=== PATIENT | female | born 1960 | race Caucasian/White ===

== ENCOUNTER 2021-12-01 20:15 | Emergency (ER) | payer MEDICAID ==
[~2021-12-01] VITALS: Ht 152.4 cm; Wt 86.4 kg
[2021-12-01 21:06] VITALS: BP 195/122
--- NOTE | 2021-12-01 21:16 | NUR ---
Pt states that she has not been on her antihypertensive medication for the past year. She was taken off this medication by her primary care provider. EDDA Solorzano made aware of elevated blood pressure.
[2021-12-01] MEDS ORDERED: ONDA4TAB12 PO (21:32)
[2021-12-01] MEDS ORDERED: CEPH250T PO (21:32)
[2021-12-01] MEDS ORDERED: HYDR-3965 PO (21:32)
[2021-12-01] MEDS ORDERED: ketorolac tromethamine 15mg/ml inj. IM ONE (21:45)
== END 2021-12-01 22:31 | disposition home or self-care (01) ==
LOC: ER 20:16
DX: S80.02XA Contusion of left knee, initial encounter (principal); R22.42 Localized swelling, mass and lump, left lower limb; I10 Essential (primary) hypertension; G89.29 Other chronic pain; Z98.891 History of uterine scar from previous surgery; Z88.0 Allergy status to penicillin; Z79.2 Long term (current) use of antibiotics; Z79.899 Other long term (current) drug therapy; W19.XXXA Unspecified fall, initial encounter; Y93.89 Activity, other specified; Y92.89 Other specified places as the place of occurrence of the external cause; Y99.8 Other external cause status
CPT/HCPCS: 29505; 73564; 96372; 99284; J1885

== ENCOUNTER 2025-02-08 12:59 | Inpatient (IN) | payer MEDICAID ==
[~2025-02-08] VITALS: Ht 152.4 cm; Wt 103.4 kg
[~2025-02-08 12:59] MED LIST: ONDA-243 PO
[2025-02-08 13:32] LABS: MEAN PLATELET VOLUME 8.7 FL (7.4-10.4); RED CELL DISTRIBUTION WIDTH 13.8 % (11.5-14.5)
--- NOTE | 2025-02-08 13:44 | ELECTROCARDIOGRAPH REPORT ---
[facility] Test Date: 2025-02-08 Test Time: 13:15:00 Pat Name: JASON NEELY Department: EMERGENCY ROOM Room: [place] [address] Gender: F Cell Tuber Hand: : 1960 Requested By: JOVANNY BAUM Order Number: [id number] Reading MD: Dr. Peter Hagan Measurements Intervals Elmo Rate: 72 P: 47 LA: 168 QRS: 67 QRSD: 108 T: 39 QT: 418 QTc: 458 Interpretive Statements Sinus rhythm RSR' in V1 or V2, right VCD or RVH Electronically Signed On 02-10-2025 19:27:[address] Peter Hagan Please click the below link to view image of tracing.
--- NOTE | 2025-02-08 13:48 | RADIOLOGY REPORT ---
EXAM: DI CHEST,SINGLE VIEW HISTORY: CP COMPARISON: None TECHNIQUE: Portable upright AP view of the chest was performed. FINDINGS: There is central interstitial prominence. There are mild patchy opacities in the bilateral lung base s. No pneumothorax. The heart is enlarged. The central pulmonary arteries are likely ectatic. IMPRESSION: 1. Cardiomegaly and mild central interstitial prominence which may be due to reactive airways disease or mild CHF. 2. Patchy opacities in the lung bases may be due to scarring, atelectasis, and/or mild pneumonia. Co mparison with old films would be helpful in making this distinction. 3. Probable pulmonary arterial hypertension.
[2025-02-08 13:53] LABS: CREATININE 0.72 MG/DL (0.40-0.90); PRO BRAIN NATRIURETIC PEPTIDE 276 PG/ML (0-125); TOTAL CARBON DIOXIDE 36.3 MMOL/L (24-32); eCRCL 57 ML/MIN; eGFR 82 ML/MIN
--- NOTE | 2025-02-08 14:07 | Physician Documentation ---
History of Present Illness ~ Chief Complaint: Weakness Stated Complaint: WEAKNESS Time Seen by MD: 13:51 OK to notify your PCP?: No Primary Medical Doctor: Alberto Mode of Arrival: EMS HPI This 65-year-old female presents to the ED with a complaint of increased weakness and leg swelling along with shortness of breath and intermittent chest pain over the last month. He was recently seen at [facility] (02/06) for similar symptoms. The patient reports that she was diagnosed with a PE however, the CTA records from [facility] indicate the that was not the case The CTA findings indicated no gross evidence of a pulmonary embolism and made note of cardiomegaly suggesting arterial hypertension. Upon arrival of EMS at the patient's resident she was saturating at 91% on room air. She is placed on 3 L to maintain adequate oxygenation. During my interview with the patient she states that she has never been a smoker however she has lived with a smoker for 75% of her life indicating long-term exposure to secondhand smoke. She reports that she has not never been evaluated for COPD Day of Onset: Feb 08, 2025 Medication Reconciliation Allergies: Coded Allergies: Penicillins (Unverified Allergy, Unknown, hives, 02/08/25) Scheduled Escitalopram Oxalate (Lexapro), 1 TAB PO DAILY, (Reported) Hydrochlorothiazide (Hydrochlorothiazide), 1 TAB PO DAILY, (Reported) Levothyroxine Sodium* (Synthroid*), 1 TAB PO DAILY, (Reported) Losartan Potassium* (Cozaar*), 1 TAB PO DAILY, (Reported) ONDANSETRON ODT 4mg tablet (Ondansetron Odt), 1 TABLET PO Q6H Miscellaneous Medications Sumatriptan Succinate (Imitrex), 4 MG SQ, (Reported) Past Medical History Past Medical History: Hypertension, Thyroid (unspecified), Chronic Back Pain Past Surgical History: Alcohol Use: None Drug Use: none Lives with: Spouse Lives In: Home Review of Systems All Other Systems at this time: Reviewed and Negative ROS As stated above in the HPI, otherwise all systems are reviewed and negative. Physical Exam Vital Signs: Temperature: 97.8, Source: Temporal, Heart Rate: 71, Respiratory Rate: 18, BP: 178/84, Pulse Oximetry: 97, Weight: 154.000 Oxygen Flow Rate: 0 Physical Exam General: Alert, no apparent distress. Respiratory: diminished B/L Chest: No accessory muscle use. Cardiovascular: Regular rate and rhythm, no murmurs. Gastrointestinal: Soft, nontender, nondistended. Bowels sounds present. Extremities: Bilateral lower extremity generalized edema with flake vargas skin and erythema circumferentially on both legs. no evidence of drainage or seeping. Neurologic: Oriented x4. Psychiatric: Normal mood and affect. Skin: Normal color, warm and dry. No edema, no ecchymosis. Progress Results/Orders Results/Orders Orders - SARTHAK LYNNE SCHOOL CLERK Page Hospitalist (02/08/25 14:05) Fill Out Med Reconciliation (02/08/25 14:05) Completed Orders - SARTHAK LYNNE SCHOOL CLERK Furosemide Inj (Lasix Inj) (02/08/25 14:10) Potassium Cl Inj (Potassium Cl Inj) (02/08/25 14:10) Potassium Cl 40meq/1/2ns 520ml ([place] (02/08/25 14:14) Vital Signs 02/08/25 02/08/25 02/08/25 13:04 13:19 14:00 Temp 97.8 Pulse 71 74 Resp 18 16 16 B/P (MAP) 178/84 164/87 (112) Pulse Ox 97 99 O2 Flow Rate 0 2.0 Laboratory Tests Test 02/08/25 13:21 White Blood Count 7.4 Red Blood Count 3.90 L Hemoglobin 12.9 Hematocrit 38.5 Mean Corpuscular Volume 98.7 H Mean Corpuscular Hemoglobin 33.0 H Mean Corpuscular Hemoglobin Concent 33.4 Red Cell Distribution Width 13.8 Platelet Count 255 Mean Platelet Volume 8.7 Neutrophils (%) (Auto) 69.4 Lymphocytes (%) (Auto) 22.1 Monocytes (%) (Auto) 6.3 Eosinophils (%) (Auto) 1.6 Basophils (%) (Auto) 0.6 Neutrophils # (Auto) 5.1 Lymphocytes # (Auto) 1.6 Monocytes # (Auto) 0.5 Eosinophils # (Auto) 0.1 Basophils # (Auto) 0.0 CBC Comment Sodium Level 139 Potassium Level 3.1 L Chloride Level 100 Carbon Dioxide Level 36.3 H Anion Gap 3 L Blood Urea Nitrogen 16 Creatinine 0.72 Estimated GFR/1.73 m2 82 BUN/Creatinine Ratio 22.2 H Glucose Level 100 Calcium Level 8.8 Troponin I High Sensitivity 10 Pro-B-Type Natriuretic Peptide 276 H Albumin 3.4 Chemistry Comments Medical Decision Making Differential Dx:Considerations: Include: anemia, CVA, dehydration, dysrhythmia, electrolyte imbalance, encephalopathy, Guillain-Huntington, hypoglycemia, hypotension, hypovolemia, labyrinthitis, Meniere's disease, myasathenia gravis, myocardial infarction, pulmonary embolus, renal failure, respiratory failure, TIA, VBI, vertigo central, vertigo peripheral, vestibular neuronitis, other Departure Disposition: 09 ADMITTED INPATIENT Impression: Primary Impression: Pneumonitis Additional Impressions: Leg swelling Weakness SOB (shortness of breath) Chest pain at rest Hypokalemia Referrals: NO PRIMARY CARE PROVIDER (PCP) Signature Scribe Signature: er Attestation: Scribed for Sarthak Lynne Quality Tech by Sarthak Buitrago NP . 02/08/25 14:32 SARTHAK LYNNE SCHOOL CLERK Feb 08, 2025 14:07
[2025-02-08] MEDS ORDERED: Potassium Cl inj 40 MEQ in normal saline 500ml IV soln 500 ML IV ONE (14:10)
[2025-02-08] MEDS ORDERED: magnesium sulf-water 4G/100mL 100 ML IV PRN (14:45)
[2025-02-08] MEDS ORDERED: potassium Cl 40MEQ/1/2NS 520ml 520 ML IV PRN (14:45)
[2025-02-08] MEDS ORDERED: magnesium sulf-water 2g/50mL 50 ML IV PRN (14:45)
[2025-02-08] MEDS ORDERED: potassium Cl 20 mEq SR tablet PO PRN (14:45)
[2025-02-08] MEDS ORDERED: mag hydrox/Alum hydrox/simeth 30ml oral suspension PO PRN (14:45)
[2025-02-08] MEDS: PERFLUTREN PROTEIN-A MICROSPHR (Optison) 0.22 MG/ML 3ML VIAL IV ONE (14:45)
[2025-02-08] MEDS: furosemide 10 MG/1 ML 10ml inj IV ONE (15:18)
[2025-02-08] MEDS: potassium Cl 40MEQ/1/2NS 520ml 520 ML IV ONE (15:33)
[2025-02-08 16:26] VITALS: PULSE 72; RESP 16; O2SAT 97
[2025-02-08] MEDS ORDERED: HYDR12.55 PO (17:42)
[2025-02-08] MEDS ORDERED: ESCI20TA PO (17:42)
[2025-02-08] MEDS ORDERED: LOSA-415 PO (17:42)
[2025-02-08] MEDS ORDERED: SYN0.088T PO (17:42)
[2025-02-08] MEDS ORDERED: SUMA4CAR SQ (17:47)
[2025-02-08 19:05] VITALS: BP 146/77; PULSE 71; RESP 18; TEMP 97.8; O2SAT 93
[2025-02-08] MEDS: HYDROcodone/acetaminophen 10/325mg tab PO PRN (19:17)
--- NOTE | 2025-02-08 19:28 | CARDIOLOGY REPORT ---
APPROVED REPORT EXAM: Comprehensive 2D, Doppler, and color-flow Echocardiogram. 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 157.1 cm/s AoV VTI 31.1 cm AO Peak GR. 9.9 mmHg AO Mean GR. 5 mmHg LVOT VTI 26.75 cm LVOT Peak Sunny. 134.5 cm/s GARTH(VTI)/BSA 3.01 cm2/m2 GARTH (VTI) 3.01 cm2 Mitral Valve MV E Velocity 90.9 cm/s MV Peak Gr. 3 mmHg MV DECEL TIME 196 ms MV A Velocity 96.8 cm/s MV PHT 52 ms E/A Ratio 0.9 MVA (PHT) 4.23 cm2 MV VMax87.4 cm/s TDI Medial E' P. V 8.00 cm/s E/Medial E' 11.4 Tricuspid Valve RAP ESTIMATE 15 mmHg Pulmonary Vein S1 Velocity 40.4 cm/s D2 Velocity 39.8 cm/s PVa Czvdfdlt07.5 cm/s PVa Byvkipuj08 msec LEFT VENTRICLE Normal LV size and function. Mild concentric hypertrophy. Overall LVEF is 60%. RIGHT VENTRICLE RV appears mildly dilated with normal contractility. ATRIA Left atrium is mildly dilated. AORTIC VALVE Trileaflet AV appears sclerotic without stenosis. No insufficiency. MITRAL VALVE MV is thickened with mild annular calcification and no stenosis. Trace mitral regurgitation. TRICUSPID VALVE The tricuspid valve is normal in structure. Trace tricuspid regurgitation. PULMONIC VALVE The pulmonary valve is normal in structure. Trace pulmonic regurgitation. GREAT VESSELS The aortic root is normal in size. Ascending aorta measured at 3.7 cm. IVC is dilated and collapses g reater than 50% with inspiration. PERICARDIUM There is no pericardial effusion, epicardial pad present. Other Information Study Quality: Adequate Conclusion Overall LVEF is 60%. Normal LV size and function. Mild concentric hypertrophy. RV appears mildly dilated with normal contractility. Trileaflet AV appears sclerotic without stenosis. No insufficiency. Trace mitral regurgitation. Trace tricuspid regurgitation. Trace pulmonic regurgitation. There is no pericardial effusion, epicardial pad present.
[2025-02-08] MEDS: docusate sod 100mg capsule PO SCH (20:00)
[2025-02-08] MEDS: K and/or MAG REPLACEMENT MC SCH (20:00)
--- NOTE | 2025-02-08 20:10 | HISTORY AND PHYSICAL ---
History & Physical Providers to CC ~ History of Present Illness Reason for Admit\Complaint: Lower extremity edema with a cough in secondary chest discomfort History of Present Illness This is a 65-year-old morbidly obese female that has a BMI of 66.3 presents to the ED with worsening lower extremity edema along with shortness of breath and chest discomfort with the cough as well as generalized weakness for one month this has been more so over the past few days she was seen at [facility] two days ago for the same complaint and at that time as CTA was obtained of the chest which was negative for PE- the patient does have lower extremity edema and a mildly elevated proBNP that is double of the upper limits of normal however the patient is oxygen saturation currently is 93% on room air the patient does have extensive secondhand smoke exposure, the patient otherwise denies a fever or chills [facility] referred the patient to networking specialist . 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 Full code status ROS ROS Except for positives in the HPI the rest of the 14 point review systems is negative Exam Vitals: Vital Signs Date Time Temp Pulse Resp B/P (MAP) Pulse Ox O2 Delivery O2 Flow Rate FiO2 02/08/25 19:17 18 02/08/25 19:05 97.8 71 146/77 (100) 93 Room Air 02/08/25 17:36 1.0 02/08/25 16:26 24 General: Gen. No acute distress alert and oriented 4, morbidly obese Lungs clear to ascultation bilaterally, no wheezes rales or rhonchi appreciated Heart normal sinus rhythm no murmurs rubs or clicks noted Abdomen soft nontender bowel sounds are normoactive Lower extremities no clubbing cyanosis appreciated bilaterally, bilateral generalized nonpitting lower extremity edema Diagnostic Data Last Recorded Lab Results: 02/08/25 1321 02/08/25 1321 Advance Care Planning Advanced Care plannin - 30 Minutes Problems: (1) Leg swelling Status: Acute Additional Plan # acute HFpEF IV Lasix Echocardiogram demonstrated an LVEF of 60% # chest pain with coughing Possibly secondary to COPD undiagnosed Versus heart failure Troponins are negative 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 The patient has decided on full code status Date of Service: Feb 08, 2025 Billing Provider: AJITH GAN DO Common Visit Codes: [id number] INP/OBS CARE (HIGH) Secondary Visit Codes: [id number] CARE PLAN 30 MINUTES AJITH GAN DO Feb 08, 2025 20:10
[2025-02-08 20:36] VITALS: PULSE 70; RESP 16; O2SAT 94
[2025-02-08] MEDS: enoxaparin 40mg/0.4ml syringe SQ SCH (20:41)
[2025-02-08 22:00] VITALS: BP 129/67; PULSE 63; RESP 20; TEMP 98; O2SAT 90
[2025-02-08] MEDS ORDERED: HYDR50TA4 PO (23:21)
[2025-02-08] MEDS ORDERED: LEVO75TA PO (23:21)
[2025-02-08] MEDS ORDERED: SUMA100T16 PO (23:21)
[2025-02-09] MEDS: ondansetron/PF 4mg/2ml inj IV PRN (01:39)
[2025-02-09 06:00] VITALS: BP 138/66; PULSE 77; RESP 16; TEMP 98; O2SAT 92
[2025-02-09 06:19] LABS: CREATININE 0.60 MG/DL (0.40-0.90); TOTAL CARBON DIOXIDE 39.6 MMOL/L (24-32); eCRCL 68 ML/MIN; eGFR > 90 ML/MIN
[2025-02-09 06:22] LABS: MEAN PLATELET VOLUME 9.3 FL (7.4-10.4); RED CELL DISTRIBUTION WIDTH 13.7 % (11.5-14.5)
[2025-02-09 08:00] VITALS: RESP 20
[2025-02-09] MEDS: potassium Cl 20 mEq SR tablet PO PRN (08:14)
[2025-02-09] MEDS: levoTHYROXINE 75mcg tablet PO ONE (09:38)
[2025-02-09] MEDS: ESCITALOPRAM 10 mg tablet 10 MG TABLET PO ONE (09:41)
[2025-02-09 10:00] VITALS: BP 116/63; PULSE 78; RESP 16; TEMP 98.1; O2SAT 90
[2025-02-09 18:00] VITALS: BP 128/61; PULSE 81; RESP 18; TEMP 98.2; O2SAT 91
--- NOTE | 2025-02-09 18:56 | PROGRESS NOTE ---
Daily Progress Note Providers to CC ~ Antibiotic Timeout Antibiotic Ordered?: No Subjective The patient has lower extremity edema is significantly improved with IV Lasix- echocardiogram demonstrated an LVEF of 60% the patient is awaiting physical therapy evaluation Objective Vital Signs Date Time Temp Pulse Resp B/P (MAP) Pulse Ox O2 Delivery O2 Flow Rate FiO2 02/09/25 18:00 98.2 81 18 128/61 (83) 91 Nasal Cannula 1.0 02/08/25 20:36 24 Result Diagram: 02/09/25 0506 02/09/25 0506 Gen. No acute distress alert and oriented 4, morbidly obese Lungs clear to ascultation bilaterally, no wheezes rales or rhonchi appreciated Heart normal sinus rhythm no murmurs rubs or clicks noted Abdomen soft nontender bowel sounds are normoactive Lower extremities no clubbing cyanosis appreciated bilaterally, bilateral generalized nonpitting lower extremity edema, mild cracking of the skin bilaterally of the feet Problem\Assessment\Plan Problems/Diagnosis: (1) Leg swelling # acute HFpEF IV Lasix Echocardiogram demonstrated an LVEF of 60% # chest pain with coughing Possibly secondary to COPD undiagnosed Versus heart failure Troponins are negative admitted on sod cutter # hypothyroidism Continue levothyroxine # hypertension Continue losartan PRN IV hydralazine # hypokalemia On potassium replacement protocol # chronic headaches associated with empty sella syndrome Continue sumatriptan PRN # morbid obesity Consider bariatric surgery # DVT prophylaxis SCDs SQ Lovenox Disposition: Awaiting physical therapy evaluation Date of Service: Feb 09, 2025 Billing Provider: AJITH GAN DO Common Visit Codes: [id number] INP/OBS CARE(HIGH) AJITH GAN DO Feb 09, 2025 18:56
[2025-02-09 18:59] VITALS: PULSE 80; RESP 18; O2SAT 95
[2025-02-09 22:00] VITALS: BP 107/54; PULSE 84; RESP 18; TEMP 97.7; O2SAT 90
[2025-02-10 06:00] VITALS: BP 107/57; PULSE 81; RESP 20; TEMP 98.4; O2SAT 90
[2025-02-10 06:37] LABS: MEAN PLATELET VOLUME 9.3 FL (7.4-10.4); RED CELL DISTRIBUTION WIDTH 13.7 % (11.5-14.5)
[2025-02-10 06:57] LABS: CREATININE 0.71 MG/DL (0.40-0.90); TOTAL CARBON DIOXIDE 39.7 MMOL/L (24-32); eCRCL 58 ML/MIN; eGFR 83 ML/MIN
[2025-02-10] MEDS: ESCITALOPRAM 10 mg tablet 10 MG TABLET PO SCH (08:45)
[2025-02-10] MEDS: levoTHYROXINE 75mcg tablet PO SCH (08:45)
[2025-02-10 09:51] VITALS: PULSE 76; RESP 18; O2SAT 97
[2025-02-10] MEDS: ipratropium/albuterol 3ml nebule NEB PRN (09:52)
[2025-02-10 10:00] VITALS: BP 138/67; PULSE 77; PULSE 79; RESP 20; TEMP 98.5; O2SAT 94
--- NOTE | 2025-02-10 13:28 | PROGRESS NOTE ---
Daily Progress Note Providers to CC ~ Antibiotic Timeout Antibiotic Ordered?: No Subjective No new complaints. Patient is seen resting comfortably Objective Vital Signs Date Time Temp Pulse Resp B/P (MAP) Pulse Ox O2 Delivery O2 Flow Rate FiO2 02/10/25 10:00 77 20 Nasal Cannula 2.0 02/10/25 09:51 97 28 02/10/25 06:00 98.4 107/57 (74) Result Diagram: 02/10/25 0538 02/10/25 0538 Awake cooperative in no acute distress HEENT normocephalic atraumatic extraocular movements are intact sclerae anicteric conjunctiva pink, moist oral mucosa, no rash or ulcers. Neck supple, no JVD Chest: Clear to auscultation, no wheezes crackles rhonchi Heart regular rate rhythm, no murmur or gallop rub Abdomen is soft, nontender, no organomegaly Extremities no cyanosis clubbing or edema Other Results Medications reviewed Problem\Assessment\Plan Problems/Diagnosis: (1) Leg swelling # acute HFpEF Continue IV Lasix Echocardiogram demonstrated an LVEF of 60% # pleuritic chest pain: Resolved. Patient did not have any complaints today. # hypothyroidism Continue levothyroxine # hypertension Continue losartan PRN IV hydralazine # hypokalemia On potassium replacement protocol # chronic headaches associated with empty sella syndrome Continue sumatriptan PRN # morbid obesity Consider bariatric surgery, deferred to outpatient follow up # DVT prophylaxis SCDs SQ Lovenox Disposition: Patient evaluated by PT. Recommendation is for post-acute care as patient has very poor mobility due to morbid obesity. Discharge per case management recommendations. Date of Service: Feb 10, 2025 Billing Provider: ANTHONY WYMAN MD Common Visit Codes: [id number] INP/OBS CARE(HIGH) ANTHONY WYMAN MD Feb 10, 2025 13:27
[2025-02-10 18:56] VITALS: BP 103/53; PULSE 74; RESP 18; TEMP 98; O2SAT 92
[2025-02-10 20:00] VITALS: RESP 18; O2SAT 92
[2025-02-10 22:00] VITALS: BP 107/57; PULSE 87; RESP 16; TEMP 98; O2SAT 93
[2025-02-11] VITALS (7 sets, daily range): BP systolic 110–149; BP diastolic 55–80; PULSE 60–69; RESP 16–20; TEMP 96.8–98.6; O2SAT 92–99
[2025-02-11 06:20] LABS: MEAN PLATELET VOLUME 9.0 FL (7.4-10.4); RED CELL DISTRIBUTION WIDTH 13.4 % (11.5-14.5)
[2025-02-11 06:47] LABS: CREATININE 0.75 MG/DL (0.40-0.90); TOTAL CARBON DIOXIDE 39.4 MMOL/L (24-32); eCRCL 54 ML/MIN; eGFR 78 ML/MIN
[2025-02-11] MEDS ORDERED: potassium Cl 20 mEq SR tablet PO PRN (14:50)
[2025-02-11] MEDS ORDERED: magnesium sulf-water 4G/100mL 100 ML IV PRN (14:50)
[2025-02-11] MEDS ORDERED: potassium Cl 40MEQ/1/2NS 520ml 520 ML IV PRN (14:50)
[2025-02-11] MEDS ORDERED: magnesium sulf-water 2g/50mL 50 ML IV PRN (14:50)
[2025-02-11] MEDS ORDERED: magnesium Cl slow-release 64mg tablet PO PRN (14:50)
[2025-02-11] MEDS: potassium Cl 20 mEq SR tablet PO PRN (14:51)
--- NOTE | 2025-02-11 15:08 | PROGRESS NOTE ---
Daily Progress Note Providers to CC ~ Antibiotic Timeout Antibiotic Ordered?: No Subjective No new complaints. Patient is seen resting comfortably Objective Vital Signs Date Time Temp Pulse Resp B/P (MAP) Pulse Ox O2 Delivery O2 Flow Rate FiO2 02/11/25 11:46 62 17 96 Nasal Cannula* 2 28 02/11/25 07:10 98.6 139/70 (93) Result Diagram: 02/11/25 0540 02/11/25 0540 Awake cooperative in no acute distress , morbidly obese female with a BMI of 66.3. HEENT normocephalic atraumatic extraocular movements are intact sclerae anicteric conjunctiva pink, moist oral mucosa, no rash or ulcers. Neck supple, no JVD Chest: Clear to auscultation, no wheezes crackles rhonchi Heart regular rate rhythm, no murmur or gallop rub Abdomen is soft, nontender, no organomegaly Extremities no cyanosis clubbing , 1+ edema, SCDs noted Neuro exam nonfocal Other Results Medications reviewed Problem\Assessment\Plan Problems/Diagnosis: (1) Leg swelling # acute HFpEF Continue IV Lasix Echocardiogram demonstrated an LVEF of 60% # pleuritic chest pain: Resolved. Patient did not have any complaints today. # hypothyroidism Continue levothyroxine # hypertension Continue losartan PRN IV hydralazine # hypokalemia On potassium replacement protocol # chronic headaches associated with empty sella syndrome Continue sumatriptan PRN # morbid obesity Consider bariatric surgery, deferred to outpatient follow up # DVT prophylaxis SCDs SQ Lovenox Disposition: Patient evaluated by PT. Recommendation is for post-acute care as patient has very poor mobility due to morbid obesity. Discharge per case management recommendations. Patient states her has been has Parkinson's and feels that she has gas lighted to do something terrible. Patient emotional and crying. Date of Service: Feb 11, 2025 Billing Provider: ANTHONY WYMAN MD Common Visit Codes: [id number] INP/OBS CARE(HIGH) ANTHONY WYMAN MD Feb 11, 2025 15:08
[2025-02-12 05:00] VITALS: BP 134/59; PULSE 67; RESP 20; TEMP 98.2; O2SAT 96
[2025-02-12 05:53] LABS: MEAN PLATELET VOLUME 9.0 FL (7.4-10.4); RED CELL DISTRIBUTION WIDTH 13.5 % (11.5-14.5)
[2025-02-12 06:27] LABS: CREATININE 0.61 MG/DL (0.40-0.90); TOTAL CARBON DIOXIDE 38.9 MMOL/L (24-32); eCRCL 67 ML/MIN; eGFR > 90 ML/MIN
[2025-02-12] MEDS: magnesium hydroxide 30ml (MOM) UD suspension PO PRN (09:08)
[2025-02-12 11:00] VITALS: BP 115/58; PULSE 66; RESP 19; TEMP 97.2; O2SAT 95
[2025-02-12 12:57] VITALS: PULSE 63; RESP 20; O2SAT 95
--- NOTE | 2025-02-12 15:35 | PROGRESS NOTE ---
Daily Progress Note Providers to CC ~ Antibiotic Timeout Antibiotic Ordered?: No Subjective Patient has no new complaints, seen resting comfortably. Objective Vital Signs Date Time Temp Pulse Resp B/P (MAP) Pulse Ox O2 Delivery O2 Flow Rate FiO2 02/12/25 12:57 63 20 95 Nasal Cannula* 2 28 02/12/25 11:00 97.2 115/58 (77) Result Diagram: 02/12/25 0515 02/12/25 0515 Awake cooperative in no acute distress , morbidly obese female with a BMI of 66.3. HEENT normocephalic atraumatic extraocular movements are intact sclerae anicteric conjunctiva pink, moist oral mucosa, no rash or ulcers. Neck supple, no JVD Chest: Clear to auscultation, no wheezes crackles rhonchi Heart regular rate rhythm, no murmur or gallop rub Abdomen is soft, nontender, no organomegaly Extremities no cyanosis clubbing , trace edema, SCDs noted Neuro exam nonfocal Other Results Medications reviewed Problem\Assessment\Plan Problems/Diagnosis: (1) Leg swelling # Acute HFpEF Continue IV Lasix Echocardiogram demonstrated an LVEF of 60% Monitor I and O's # Pleuritic chest pain: Resolved. Patient did not have any complaints today. # Hypothyroidism Continue levothyroxine # Hypertension Continue losartan PRN IV hydralazine # Hypokalemia On potassium replacement protocol # Chronic headaches associated with empty sella syndrome Continue sumatriptan PRN # Morbid obesity Deferred to outpatient follow up # DVT prophylaxis SCDs SQ Lovenox Disposition: Patient evaluated by PT. Recommendation is for post-acute care as patient has very poor mobility due to morbid obesity. Discharge per case management recommendations. Patient states her has been has Parkinson's and feels that she has gas lighted to do something terrible. Date of Service: Feb 12, 2025 Billing Provider: ANTHONY WYMAN MD Common Visit Codes: [id number] INP/OBS CARE(MOD) ANTHONY WYMAN MD Feb 12, 2025 15:35
[2025-02-12 18:00] VITALS: BP 125/56; PULSE 70; RESP 18; TEMP 99
[2025-02-12 21:11] VITALS: PULSE 62; RESP 18; O2SAT 89
[2025-02-12 22:00] VITALS: BP 134/73; PULSE 57; RESP 18; TEMP 97.5; O2SAT 90
[2025-02-12] MEDS: HYDROcodone/acetaminophen 5mg/325mg tablet PO PRN (22:01)
[2025-02-13] VITALS (7 sets, daily range): BP systolic 103–130; BP diastolic 44–63; PULSE 57–73; RESP 16–20; TEMP 96.4–98.7; O2SAT 92–98
[2025-02-13 05:48] LABS: MEAN PLATELET VOLUME 9.1 FL (7.4-10.4); RED CELL DISTRIBUTION WIDTH 13.4 % (11.5-14.5)
[2025-02-13 06:19] LABS: CREATININE 0.59 MG/DL (0.40-0.90); TOTAL CARBON DIOXIDE 39.3 MMOL/L (24-32); eCRCL 69 ML/MIN; eGFR > 90 ML/MIN
--- NOTE | 2025-02-13 17:42 | DISCHARGE SUMMARY ---
Discharge Summary Providers to CC ~ Discharge Summary Admission Diagnosis: Acute heart failure/ morbid obesity Hospital Course DATE OF ADMISSION: 02/08/2025 DATE OF DISCHARGE:02/16/2025 Discharge Diagnosis\Comment: Acute HFpEF Operations\Procedures: Echocardiogram Consultants: None Complications: None Condition on DC: Stable Discharge Summary: Reason for admission:65-year-old morbidly obese female with a BMI of 66.3 presented to the ER with worsening lower extremity edema along with shortness of breath and chest discomfort with the cough as well as generalized weakness for one month Please refer to admission H&P for more details. Hospital course: Patient was admitted on the monitored floor and the hospital course is as follows. # Acute HFpEF :Patient treated with IV Lasix . Echocardiogram demonstrated an LVEF of 60% I and O's monitore # Pleuritic chest pain: Resolved. Patient did not have any complaints while she was under my care. # Hypothyroidism :Continued on levothyroxine # Hypertension:Continued losartan treated with PRN IV hydralazine # Hypokalemia : Replaced per protocol. # Chronic headaches associated with empty sella syndrome .Treated with sumatriptan PRN # Morbid obesity : Deferred to outpatient follow up # DVT prophylaxis :Placed on SCDs and SQ Lovenox Discharge exam: I examined the patient on the day of discharge. Awake cooperative in no acute distress , morbidly obese female with a BMI of 66.3. HEENT normocephalic atraumatic extraocular movements are intact sclerae anicteric conjunctiva pink, moist oral mucosa, no rash or ulcers. Neck supple, no JVD Chest: Clear to auscultation, no wheezes crackles rhonchi Heart regular rate rhythm, no murmur or gallop rub Abdomen is soft, nontender, no organomegaly Extremities no cyanosis clubbing , trace edema, SCDs noted Neuro exam nonfocal Disposition : SNF *Problems/Diagnosis: (1) Leg swelling Status: Acute Total Time Spent on D/C: > 30 Minutes Date of Service: Feb 16, 2025 Billing Provider: ANTHONY WYMAN MD Common Visit Codes: [id number]-MOV/OBS DISCH DAY >30min ANTHONY WYMAN MD Feb 13, 2025 17:42
[2025-02-14] VITALS (7 sets, daily range): BP systolic 114–138; BP diastolic 52–66; PULSE 61–99; RESP 14–19; TEMP 97–98.3; O2SAT 90–100
[2025-02-14] MEDS: albuterol 2.5 MG/3 ML nebule NEB PRN (02:42)
--- NOTE | 2025-02-14 16:21 | PROGRESS NOTE ---
Daily Progress Note Providers to CC ~ Antibiotic Timeout Antibiotic Ordered?: No Subjective Patient has no new complaints. Seen resting comfortably. Objective Vital Signs Date Time Temp Pulse Resp B/P (MAP) Pulse Ox O2 Delivery O2 Flow Rate FiO2 02/14/25 14:53 68 14 95 Nasal Cannula* 1 24 02/13/25 22:00 98.7 103/44 (63) Result Diagram: 02/13/25 04202/13/25 042 Awake cooperative in no acute distress , morbidly obese female with a BMI of 66.3. HEENT normocephalic atraumatic extraocular movements are intact sclerae anicteric conjunctiva pink, moist oral mucosa, no rash or ulcers. Neck supple, no JVD Chest: Clear to auscultation, no wheezes crackles rhonchi Heart regular rate rhythm, no murmur or gallop rub Abdomen is soft, nontender, no organomegaly Extremities no cyanosis clubbing , trace edema, SCDs noted Neuro exam nonfocal Other Results Medications reviewed Problem\Assessment\Plan Problems/Diagnosis: (1) Leg swelling # Acute HFpEF :Continue IV Lasix . Echocardiogram demonstrated an LVEF of 60% Continue Monitor I and O's # Pleuritic chest pain: Resolved. Patient did not have any complaints today. # Hypothyroidism :Continue levothyroxine # Hypertension:Continue losartan PRN IV hydralazine # Hypokalemia On potassium replacement protocol # Chronic headaches associated with empty sella syndrome .Continue sumatriptan PRN # Morbid obesity : Deferred to outpatient follow up # DVT prophylaxis :SCDs SQ Lovenox Disposition: Patient evaluated by PT. Recommendation is for post-acute care as patient has very poor mobility due to morbid obesity. Discharge per case management recommendations. Awaiting placement . Date of Service: Feb 13, 2025 Billing Provider: ANTHONY WYMAN MD Common Visit Codes: [id number] INP/OBS CARE(HIGH) ANTHONY WYMAN MD Feb 14, 2025 16:21
--- NOTE | 2025-02-14 16:24 | PROGRESS NOTE ---
Daily Progress Note Providers to CC ~ Antibiotic Timeout Antibiotic Ordered?: No Subjective Patient has no new complaints. Objective Vital Signs Date Time Temp Pulse Resp B/P (MAP) Pulse Ox O2 Delivery O2 Flow Rate FiO2 02/14/25 14:53 68 14 95 Nasal Cannula* 1 24 02/13/25 22:00 98.7 103/44 (63) Result Diagram: 02/13/25 04202/13/25 042 Awake cooperative in no acute distress , morbidly obese female with a BMI of 66.3. HEENT normocephalic atraumatic extraocular movements are intact sclerae anicteric conjunctiva pink, moist oral mucosa, no rash or ulcers. Neck supple, no JVD Chest: Clear to auscultation, no wheezes crackles rhonchi Heart regular rate rhythm, no murmur or gallop rub Abdomen is soft, nontender, no organomegaly Extremities no cyanosis clubbing , trace edema, SCDs noted Neuro exam nonfocal Other Results Medications reviewed Problem\Assessment\Plan Problems/Diagnosis: (1) Leg swelling # Acute HFpEF :Continue IV Lasix . Echocardiogram demonstrated an LVEF of 60% Continue Monitor I and O's # Pleuritic chest pain: Resolved. Patient did not have any complaints today. # Hypothyroidism :Continue levothyroxine # Hypertension:Continue losartan PRN IV hydralazine # Hypokalemia On potassium replacement protocol # Chronic headaches associated with empty sella syndrome .Continue sumatriptan PRN # Morbid obesity : Deferred to outpatient follow up # DVT prophylaxis :SCDs SQ Lovenox Disposition: Patient evaluated by PT. Recommendation is for post-acute care as patient has very poor mobility due to morbid obesity. Discharge per case management recommendations. Awaiting placement . 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 Date of Service: Feb 14, 2025 Billing Provider: ANTHONY WYMAN MD Common Visit Codes: [id number] INP/OBS CARE(MOD) ANTHONY WYMAN MD Feb 14, 2025 16:24
[2025-02-15] VITALS (8 sets, daily range): BP systolic 123–145; BP diastolic 62–98; PULSE 61–69; RESP 13–16; TEMP 97.3–98.5; O2SAT 90–98
--- NOTE | 2025-02-15 16:17 | PROGRESS NOTE ---
Daily Progress Note Providers to CC ~ Antibiotic Timeout Antibiotic Ordered?: No Subjective No new complaints, Patient is seen resting comfortably. Objective Vital Signs Date Time Temp Pulse Resp B/P (MAP) Pulse Ox O2 Delivery O2 Flow Rate FiO2 02/15/25 08:12 118 02/15/25 08:12 16 02/15/25 08:00 98 Room Air 02/15/25 07:58 0 21 02/15/25 06:00 98.5 145/98 (114) Result Diagram: 02/13/25 04202/13/25 0421 Awake cooperative in no acute distress , morbidly obese female with a BMI of 66.3. HEENT normocephalic atraumatic extraocular movements are intact sclerae anicteric conjunctiva pink, moist oral mucosa, no rash or ulcers. Neck supple, no JVD Chest: Clear to auscultation, no wheezes crackles rhonchi Heart regular rate rhythm, no murmur or gallop rub Abdomen is soft, nontender, no organomegaly Extremities no cyanosis clubbing , trace edema, SCDs noted Neuro exam nonfocal Other Results Medications Reviewed Problem\Assessment\Plan Problems/Diagnosis: (1) Leg swelling # Acute HFpEF :Continue IV Lasix . Echocardiogram demonstrated an LVEF of 60% Continue Monitor I and O's # Pleuritic chest pain: Resolved. Patient did not have any complaints today. # Hypothyroidism :Continue levothyroxine # Hypertension:Continue losartan PRN IV hydralazine # Hypokalemia On potassium replacement protocol # Chronic headaches associated with empty sella syndrome .Continue sumatriptan PRN # Morbid obesity : Deferred to outpatient follow up # DVT prophylaxis :SCDs SQ Lovenox Disposition: Patient evaluated by PT. Recommendation is for post-acute care as patient has very poor mobility due to morbid obesity. Patient has been awaiting placement . 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 Date of Service: Feb 15, 2025 Billing Provider: ANTHONY WYMAN MD Common Visit Codes: [id number] INP/OBS CARE(MOD) ANTHONY WYMAN MD Feb 15, 2025 16:17
[2025-02-16 03:43] VITALS: PULSE 66; RESP 16; O2SAT 93
[2025-02-16 06:00] VITALS: BP 136/58; PULSE 85; RESP 18; TEMP 98.6; O2SAT 95
[2025-02-16 08:09] VITALS: PULSE 99; RESP 16; O2SAT 90
[2025-02-16 09:17] VITALS: RESP 18
[2025-02-16 10:00] VITALS: BP 129/61; PULSE 67; RESP 19; TEMP 97.1; O2SAT 92
[2025-02-16] MEDS: bisacodyl 10mg suppository rectal RC STA (14:50)
[2025-02-16] MEDS: mineral oil 133ml enema RC PRN (15:27)
== END 2025-02-16 16:31 | DRG 194 ==
LOC: ER 12:59 → ED HOLD 14:54 → ORTHO 4S 18:50 → SUR 3N 02-10 17:45
PROVIDERS: ADMIT Family Medicine; ATTEND Family Medicine
DX: I11.0 Hypertensive heart disease with heart failure (principal); Z68.44 Body mass index [BMI] 60.0-69.9, adult; I50.31 Acute diastolic (congestive) heart failure; E03.9 Hypothyroidism, unspecified; E66.01 Morbid (severe) obesity due to excess calories; R51.9 Headache, unspecified; E87.6 Hypokalemia; J98.4 Other disorders of lung; Z79.899 Other long term (current) drug therapy; Z88.0 Allergy status to penicillin
CPT/HCPCS: 36415; 71045; 80048; 80053; 83735; 83880; 84443; 84484; 85025; 87081; 93005; 93306; 94640; 94760; 97161; 97530; 99285; A4615; A6250; A6590; G0378; J1650; J1938; J2405; J3480

== ENCOUNTER 2025-04-14 01:25 | Inpatient (IN) | payer MEDICAID ==
[2025-04-14] VITALS (18 sets, daily range): BP systolic 128–129; BP diastolic 61–68; PULSE 61–82; RESP 14–20; TEMP 97.2–98.4; O2SAT 89–97
[~2025-04-14] VITALS: Ht 152.4 cm; Wt 135.0 kg
[~2025-04-14 01:25] MED LIST changes: +ESCI20TA PO; +HYDR50TA4 PO; +LEVO75TA PO; +LOSA-415 PO; -ONDA-243 PO; +SUMA100T16 PO
--- NOTE | 2025-04-14 01:38 | Physician Documentation ---
History of Present Illness ~ General Stated Complaint: WEAKNESS Time Seen by MD: 01:35 OK to notify your PCP?: Yes Primary Medical Doctor: Alberto Source: patient, RN/MD, EMS, RN notes reviewed, EMS notes reviewed, old records Mode of Arrival: EMS Exam Limitations: no limitations History of Present Illness Initial Comments 8 This patient is a 65 y/o female BIBEMS to ED for generalized weakness, unable to ambulate, and shortness of breath. Patient reports about 1.5 months ago she was in the hospital for a few days to have fluid reduction. She states that after discharge from the hospital she spent the next 4-6 weeks in [facility], where she states she did have some PT, but it was discontinued due to insurance issue. Patient was just recently discharged today, and per EMS, she did have a s low, controlled fall down to the ground from her wheelchair this afternoon onto her bottom, after which she called for a lift assist and was fine. This evening patient called again after she fell from the toilet onto the ground, landing on her bottom. No head strike, no LOC. Patient states that she opted to come in to the hospital this time because she was also short of breath, and felt very weak. Patient states that she did receive oxygen at [facility], however they discontinued it when she went home and this morning she felt very short of breath. She also states she is unable to bear weight at all since being discharg ed, despite having PT. Patient has been using a wheelchair and walker for the past 2.5 years but insists she has never felt this weak. Patient denies any other associated symptoms at this time. Patient denies any other alleviating or exacerbating factors. [facility] records reviewed and shows that last echocardiogram was performed on 02/08/2025 which showed an EF of 60%. Medication Reconciliation Allergies: Coded Allergies: Penicillins (Unverified Allergy, Unknown, hives, 02/08/25) Scheduled Escitalopram Oxalate (Lexapro), 1 TAB PO DAILY, (Reported) Escitalopram Oxalate (Escitalopram Oxalate), 1 TAB PO DAILY, (Reported) Furosemide (Furosemide), 1 TAB PO DAILY, (Reported) Hydrochlorothiazide (Hydrochlorothiazide), 1 TAB PO DAILY, (Reported) Levothyroxine Sodium (Levothyroxine Sodium), 1 TAB PO DAILY, (Reported) Levothyroxine Sodium* (Synthroid*), 2 TAB PO DAILY, (Reported) Losartan Potassium (Losartan Potassium), 1 TAB PO DAILY, (Reported) Losartan Potassium* (Cozaar*), 2 TAB PO DAILY, (Reported) Scheduled PRN Sumatriptan Succinate (Sumatriptan Succinate), 1 TAB PO PRN PRN for headache, (Reported) Miscellaneous Medications Hydrocodone Bit/Acetaminophen (Hydrocodon-Acetaminophn 10-325 tablet), (Reported) Past Medical History Past Medical History: Hypertension, Asthma, Thyroid (unspecified), Chronic Back Pain, *PSYCH* Past Surgical History: Patient History: FH: hypothyroidism MOTHER Daughter Maternal grandmother Smoking Status: Unknown if ever smoked Alcohol Use: None Drug Use: none Lives with: Spouse Lives In: Home Review of Systems All Other Systems at this time: Reviewed and Negative ROS As stated above in the HPI, otherwise all systems are reviewed and negative. Physical Exam Physical Exam Vital Signs: RN Vital Signs have been reviewed: Yes Physical Exam General: The patient is well developed, well nourished, nontoxic appearing and is in no acute distress. Skin: [place], warm and dry with no rashes. HEENT: Head was normocephalic and atraumatic. Eyes - pupils equal, round, reactive to light and accommodation. Extraocular movements were intact. Conjunctivae were nonicteric. The mouth and oropharynx were clear with moist mucous membranes. There were no pharyngeal exudates or erythema. Neck: Supple and nontender. There was no jugular venous distention, lymphadenopathy, thyromegaly or masses. Chest: Trace crackles at the bases. Otherwise no accessory muscle use. No dullness to percussion. Heart: Rate regular and rhythmic. S1, S2. No murmurs. Palpation of the chest wall was normal. No rubs or thrills. Abdomen: Soft, nontender and nondistended. Positive bowel sounds. No guarding or rebound. No hepatosplenomegaly or palpable masses. Extremities: 1+ pitting edema to bilateral lower extremities. Otherwise no cyanosis or edema. The patient moves all extremities. Pulses were equal and symmetric. Neurologic: Motor and sensation grossly intact. A & O x4. Psychologic: The patient was oriented to person, place and time. Progress Progress Note 0300: Case discussed with hospitalist who agrees to evaluate patient for admission. Results/Orders Reviewed/noted all lab results: Yes Results/Orders Orders - PETER HAGAN MD Chest,Single View (04/14/25 01:38) Abg (Arterial Blood Gas) (04/14/25 01:38) Monitor (04/14/25 01:38) Oxygen (04/14/25 01:38) Saline Lock (04/14/25 01:38) Electrocardiogram (04/14/25 01:38) Completed Orders - PETER HAGAN MD Cbc/Diff (04/14/25 01:38) MG (04/14/25 01:38) Pt Inr (04/14/25 01:38) PTT (04/14/25 01:38) PBNP (04/14/25 01:38) Chest,Single View (04/14/25 01:38) Electrocardiogram (04/14/25 01:38) Hs Troponin I W Calculations (04/14/25 01:38) Hs Troponin I W Calculations (04/14/25 04:38) CMP (04/14/25 01:45) PHOS (04/14/25 01:45) TSH (04/14/25 01:45) Vital Signs 04/14/25 04/14/25 01:39 03:13 Temp 98.3 Pulse 77 Resp 20 B/P (MAP) 108/61 Pulse Ox 85 Laboratory Tests Test 04/14/25 01:45 04/14/25 02:05 White Blood Count 12.0 H Red Blood Count 4.36 Hemoglobin 13.3 Hematocrit 40.6 Mean Corpuscular Volume 93.1 Mean Corpuscular Hemoglobin 30.6 Mean Corpuscular Hemoglobin Concent 32.8 L Red Cell Distribution Width 13.9 Platelet Count 260 Mean Platelet Volume 10.3 Neutrophils (%) (Auto) 83.6 H Lymphocytes (%) (Auto) 11.1 L Monocytes (%) (Auto) 4.0 Eosinophils (%) (Auto) 0.9 Basophils (%) (Auto) 0.4 Neutrophils # (Auto) 10.0 H Lymphocytes # (Auto) 1.3 Monocytes # (Auto) 0.5 Eosinophils # (Auto) 0.1 Basophils # (Auto) 0.1 CBC Comment Prothrombin Time 10.9 INR International Normalized Ratio 1.1 Activated Partial Thromboplast Time 28 Coagulation Comments Sodium Level 142 Potassium Level 4.3 Chloride Level 100 Carbon Dioxide Level 36.8 H Anion Gap 5 L Blood Urea Nitrogen 22 H Creatinine 1.00 H Estimated GFR/1.73 m2 56 BUN/Creatinine Ratio 22.0 H Glucose Level 118 H Calcium Level 9.2 Phosphorus Level 2.8 Magnesium Level 2.1 Total Bilirubin 0.5 Aspartate Amino Transf (AST/SGOT) 25 Alanine Aminotransferase (ALT/SGPT) 26 Alkaline Phosphatase 93 Troponin I High Sensitivity 6 Pro-B-Type Natriuretic Peptide 75 Total Protein 7.8 Albumin 2.8 L Globulin 5.0 H Albumin/Globulin Ratio 0.6 L Thyroid Stimulating Hormone (TSH) 3.65 Chemistry Comments Blood Gas Specimen Type Arterial Blood Gas Puncture Site Rr O2 Saturation 96.2 Arterial Blood pH (Temp corrected) 7.397 Arterial Blood pCO2 (Temp correct) 57.9 H Arterial Blood pO2 (Temp corrected) 84.7 Arterial Blood PO2/FiO2 Ratio 2.13 Arterial Blood HCO3 34.9 H Arterial Blood Base Excess 8.0 H Arterial Blood Oxyhemoglobin 95.6 Arterial Blood Carboxyhemoglobin 0.6 Arterial Blood Methemoglobin 0.0 Arterial Blood Deoxyhemoglobin 3.8 Stef Test Positive Blood Gas Hemoglobin 14.6 Blood Gas Temperature 36.9 Blood Gas Liter Flow 5 Blood Gas Modality Nasal cannula FiO2 40.0 Re-Evaluation Re-Evaluation : Re-Evaluation: Improved Progress Patient was seen and examined. Patient was given reassurance. Patient is complaining of some generalized weakness as well as falls having difficulty ambulating although the patient does use a walker and has poor mobility. She has been in rehab and was just discharged but unfortunately she seems to have a new problem with some hypoxemia. She states she has low oxygenation also significant get fatigue and weakness. Patient's laboratory work was obtained white count was slightly elevated 2.0 with a normal hemoglobin hematocrit slight left shift of 83.6 somewhat suspicious for infectious process. Chemistries were obtained BUN is 22 creatinine 1.0 with a BUN creatinine ratio of 22 for some mild dehydration CO2 however is increased at 36.8 suggestive of chronic hyp ercapnia. Patient blood gas was obtained ABG shows a pH of 7.397. However pCO2 is elevated at 57.9 oxygen at 84.7%. Patient was then admitted to the hospitalist service for further workup and care patient received a neb treatment was feeling slightly better. No antibiotics were given at this time. Continuous monitoring tech interpretation shows normal sinus rhythm heart rate 7 0s, no ectopy, normal, my interpretation. Pulse oximetry monitor interpretation shows hypoxemia at 85% room air, abnormal, my interpretation. 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 Peter Hagan Measurements Intervals [place] Rate: 78 P: 60 MS: 154 QRS: 64 QRSD: 144 T: 53 QT: 376 QTc: 429 Interpretive Statements Sinus rhythm Right bundle branch block Artifact in lead(s) I,II,III,aVR,aVL,aVF,V5,V6 Electronically Signed On 04-14-2025 4:30:[address] Peter Hagan Please click the below link to view image of tracing. EKG Date and Time:04/14/25 0149 Electronically Signed by: PETER HAGAN MD Date and Time: 04/14/25 0430 NO PRIMARY CARE PROVIDER~ cc: ~ Chest X-Ray : Interpreted By: both Additional Comments [facility] [address] , [place], [facility] [id number] DIAGNOSTIC RADIOLOGY Patient: JASON NEELY Medical Record: [id number] : 1960, Age: 65 Sex: Female Location: ER Patient Status: REG ER Service Date/Time: 04/14/25/ 0138 Ordering Physician: PETER HAGAN MD Exam: CHEST,SINGLE VIEW CHEST RADIOGRAPH Indication: CHEST PAIN Technique: Single frontal view of the chest was obtained COMPARISON: DI CHEST,SINGLE VIEW on DOS: 02/08/25 FINDINGS: Lines and Tubes: None Lungs: Moderate diffuse increased prominence of the pulmonary vasculature. No evidence of focal consolidation. Pleura: No effusion. No pneumothorax. Cardiomediastinal contours: Unremarkable Bones: Unremarkable IMPRESSION: 1. Moderate diffuse increased prominence of the pulmonary vasculature. Electronically Signed by:SONIDO GEORGES MD Date & Time: 04/14/25229 Dictated by: SONIDO GEORGES MD Dictation date and time: 04/14/25 020 Primary Care Provider: NO PRIMARY CARE PROVIDER cc: PETER HAGAN MD ~ EDMD DR. HAGAN REVIEWED IMAGES AND AGREES WITH ABOVE FINDINGS Medical Decision Making Additional info obtained from: old records Differential Diagnosis Areas concern for possible pulmonary embolism. Pneumonia pneumonitis COPD emphysema infectious etiology chronic interstitial pulmonary disease as well as possible cardiac etiologies were all considered. Departure Time of Disposition: 03:37 Disposition: 09 ADMITTED INPATIENT Admitted to Inpatient Unit: yes, to hospitalist Admission Level of Care: PCU with Tele Impression: Primary Impression: Hypoxia Additional Impressions: Generalized weakness Edema Qualified Codes: R60.0 - Localized edema Unable to ambulate Heart failure Qualified Codes: I50.9 - Heart failure, unspecified Obesity Qualified Codes: E66.9 - Obesity, unspecified Condition: Guarded Referrals: NO PRIMARY CARE PROVIDER (PCP) Education Educated: Patient Educated regarding: diagnosis, other Signature Scribe Signature: Scribed for Peter Hagan MD by Gill Dhaliwal. 04/14/25 01:45 Attestation: The note accurately reflects work and decisions made by me.Peter Hagan MD 04/14/25 01:38 PETER HAGAN MD Apr 14, 2025 01:38
--- NOTE | 2025-04-14 01:52 | ELECTROCARDIOGRAPH REPORT ---
[facility] Test Date: 2025-04-14 Test Time: 01:49:47 Pat Name: JASON NEELY Department: [facility] Patient ID: [facility]-[id number] Room: ED 8 Gender: F Pet Sitting: : 1960 Requested By: BETHEL GUALLPA Order Number: [id number] Reading MD: Dr. Bethel Guallpa Measurements Intervals [place] Rate: 78 P: 60 OR: 154 QRS: 64 QRSD: 144 T: 53 QT: 376 QTc: 429 Interpretive Statements Sinus rhythm Right bundle branch block Artifact in lead(s) I,II,III,aVR,aVL,aVF,V5,V6 Electronically Signed On 04-14-2025 4:30:[address] Bethel Guallpa Please click the below link to view image of tracing.
[2025-04-14 02:00] LABS: MEAN PLATELET VOLUME 10.3 FL (7.4-10.4); RED CELL DISTRIBUTION WIDTH 13.9 % (11.5-14.5)
[2025-04-14 02:05] LABS: APTT 28 SECONDS (22-32); INR 1.1 INR
[2025-04-14 02:11] LABS: ABG BASE EXCESS 8.0 mmol/L (-2.0-3.0); ABG HCO3 34.9 mmol/L (21.0-28.0); ABG OXYGEN SATURATION 96.2 % (94.0-98.0); ABG PCO2 (T) 57.9 mmHg (32.0-45.0); ABG PH (T) 7.397 (7.350-7.450); ABG PO2 (T) 84.7 mmHg (83.0-108.0); ALLEN'S TEST POSITIVE; FCOHb 0.6 % (0.5-1.5); FHHb 3.8 % (0.0-5.0); FIO2 40.0 mmHg/%; FLOW 5 L/min; FMetHb 0.0 % (0.0-1.5); FO2Hb 95.6 % (94.0-98.0); MODE NASAL CANNULA; PATIENT TEMPERATURE 36.9; TOTAL HEMOGLOBIN 14.6 G/dl (12.0-16.0)
[2025-04-14 02:13] LABS: CREATININE 1.00 MG/DL (0.40-0.90); PRO BRAIN NATRIURETIC PEPTIDE 75 PG/ML (0-125); TOTAL CARBON DIOXIDE 36.8 MMOL/L (24-32); eCRCL 41 ML/MIN; eGFR 56 ML/MIN
--- NOTE | 2025-04-14 02:33 | RADIOLOGY REPORT ---
CHEST RADIOGRAPH Indication: CHEST PAIN Technique: Single frontal view of the chest was obtained COMPARISON: DI CHEST,SINGLE VIEW on DOS: 02/08/25 FINDINGS: Lines and Tubes: None Lungs: Moderate diffuse increased prominence of the pulmonary vasculature. No evidence of focal consolidation. Pleura: No effusion. No pneumothorax. Cardiomediastinal contours: Unremarkable Bones: Unremarkable IMPRESSION: 1. Moderate diffuse increased prominence of the pulmonary vasculature.
[2025-04-14] MEDS ORDERED: magnesium Cl slow-release 64mg tablet PO PRN (03:40)
[2025-04-14] MEDS ORDERED: magnesium sulf-water 4G/100mL 100 ML IV PRN (03:40)
[2025-04-14] MEDS ORDERED: ondansetron/PF 4mg/2ml inj IV PRN (03:40)
[2025-04-14] MEDS ORDERED: magnesium sulf-water 2g/50mL 50 ML IV PRN (03:40)
[2025-04-14] MEDS ORDERED: potassium Cl 40MEQ/1/2NS 520ml 520 ML IV PRN (03:40)
[2025-04-14] MEDS ORDERED: potassium Cl 20 mEq SR tablet PO PRN ×2 (03:40)
--- NOTE | 2025-04-14 03:48 | HISTORY AND PHYSICAL-Residence ---
History & Physical Providers to CC Resident Creating Document: MUKUND MANCUSO RES ~ History of Present Illness Primary Medical Doctor: Alberto Reason for Admit\Complaint: Generalized weakness History of Present Illness 65 years old female with history of hypothyroidism, obesity BMI 58.1, heart failure with preserved ejection fraction PTSD wheelchair-bound presented to the ED due to generalized weakness. Patient discharged home from [facility] yesterday. Patient was in rehab for six week, as patient's report she received physical therapy 4 weeks and feeling much better however due to insurance issue she could not continue physical therapy. Patient discharged home yesterday however she reported she experienced generalized weakness and unable to transfer from wheelchair to couch/chair. She reported 2/3 times almost fell on the ground. She did not hit her head or lose consciousness. Patient also reported while she was on 2 L oxygen or rehab however she discharged home with no any oxygen. When she arrived in the ED she was hypoxic with O2 saturation of 85% however after she received 2 L of oxygen oxygen saturation went up to 93%. Patient denies any shortness of breaths, chest pain nausea vomiting abdominal pain. She was advised to follow-up for sleep study for evaluation of obstructive sleep apnea but it is still pending. Allergies: Coded Allergies: Penicillins (Unverified Allergy, Unknown, hives, 02/08/25) Home Medications Home Medications Active Reported Sumatriptan Succinate 100 Mg Tablet 1 Tab PO PRN PRN may repeat in 2 hours; do not exceed 200 mg in 24 hours Hydrochlorothiazide 50 Mg Tablet 1 Tab PO DAILY Synthroid* (Levothyroxine Sodium) 75 Mcg Tablet 2 Tab PO DAILY Cozaar* (Losartan Potassium) 25 Mg Tablet 2 Tab PO DAILY Lexapro (Escitalopram Oxalate) 20 Mg Tablet 1 Tab PO DAILY 30 Days Past Medical History Past Medical History Hypertension CHF with preserved ejection fraction Obesity with BMI 58.1 Hypothyroidism Chronic pain Encephalitis with sepsis and multisystem organ failure and respiratory failure in 2022 PTSD/depression/anxiety Past Surgical History Surgical History Comment section Family History Family History: FH: atrial fibrillation (Father, brother) FH: hypothyroidism MOTHER Daughter Maternal grandmother Past Social History Smoking: Non-Smoker Alcohol Use: None Drug Use: None Lives with: Spouse Lives In: Home ROS ROS The history of present illness included a review of system, which yielded relevant positives and negatives Exam Vitals: Vital Signs Date Time Temp Pulse Resp B/P (MAP) Pulse Ox O2 Delivery O2 Flow Rate FiO2 04/14/25 03:13 04/14/25 01:39 98.3 77 20 85 General: General: Awake and Alert, no acute distress. HEENT: Conjunctiva pink, Sclera clear, Mucus Membranes moist. Neck: Supple without masses and tenderness. Resp: Bilateral basilar crackle Heart: Regular Rate and rhythm, normal S1 and S2 Abdomen: Soft and non tender no organomegaly Extremities: Bilateral lower extremity 1+ edema Skin: Very dry bilateral lower extremity skin/lots of scaling Neurological: Speech is clear, alert, and oriented x 4, patient is wheelchair- bound, lower extremity strength 2/5 as her report which is a chronic condition no any changes recently Diagnostic Data Last Recorded Lab Results: 04/14/2514404/14/25144 Diagnostic Data: Laboratory Tests Test 04/14/25 01:45 Prothrombin Time 10.9 SECONDS (9.0-12.0) INR International Normalized Ratio 1.1 INR Activated Partial Thromboplast Time 28 SECONDS (22-32) Coagulation Comments Advance Care Planning Advanced Care plannin - 30 Minutes Additional Plan 65 years old female with history of obesity BMI 58.1, CHF with preserved ejection fraction, hypothyroidism, PTSD depression wheelchair-bound presented to the ED due to generalized weakness Generalized weakness Patient is wheelchair-bound, however she reported she is not able to transfer from wheelchair to chair after discharged from rehab facility Needs social professionals and case assistant for DC planning Acute respiratory distress on arrival Could be due to hypoventilation disorder due to obesity or Mild CHF exacerbation Obesity: BMI 58.1 Chest x-ray showed: Moderate diffuse increased prominence of the pulmonary vasculature. Initial ABG showed: Respiratory acidosis with metabolic alkalosis (possibly chronic) 02/08/25 : Echo showed: Overall LVEF is 60%. Normal LV size and function. Mild concentric hypertrophy. RV appears mildly dilated with normal contractility. Trileaflet AV appears sclerotic without stenosis. No insufficiency. Trace mitral regurgitation.Trace tricuspid regurgitation. Trace pulmonic regurgitation. There is no pericardial effusion, epicardial pad present. Received albuterol and Solu-Medrol in the ED We will start Lasix 40 mg daily, continue monitoring I&Os Needs indication optimization GDM T She needs to be evaluated by sleep study as an outpatient for possible ASHLEIGH Other comorbidities Hypothyroidism, PTSD anxiety depression Continue home medication after reconciliation Code Status: full DVT prophylaxis: Heparin subQ Analgesia/sedation: None Line/tube: Peripheral GI prophylaxis: None Nutrition: Heart healthy PT: Yes Prognosis: Guarded Disposition: Continue monitoring patient in ortho floor with telemetry Mukund Mancuso MD Internal Medicine Resident Attending I saw this patient via the video system and discussed the assessment and plan with the resident team I agree with note as documented Date of Service: Apr 14, 2025 Billing Provider: STACIA ESQUIVEL MD, ELAHE, RES Apr 14, 2025 03:48 STACIA ESQUIVEL MD Apr 14, 2025 08:54
[2025-04-14 04:04] LABS: PHOSPHORUS 2.8 MG/DL (2.3-4.5)
[2025-04-14] MEDS: ipratropium/albuterol 3ml nebule NEB ONE (04:21)
[2025-04-14] MEDS: furosemide 10 MG/1 ML 10ml inj IV ONE (04:25)
[2025-04-14] MEDS ORDERED: ipratropium/albuterol 3ml nebule NEB PRN (04:45)
[2025-04-14] MEDS ORDERED: LOSA50TA64 PO (05:22)
[2025-04-14] MEDS ORDERED: LEVO150T8 PO (05:22)
[2025-04-14] MEDS ORDERED: FURO40TA4 PO (05:22)
[2025-04-14] MEDS ORDERED: ESCI20TA39 PO (05:22)
[2025-04-14] MEDS ORDERED: HYDR-3972 (05:53)
[2025-04-14] MEDS: K and/or MAG REPLACEMENT MC SCH (08:00)
[2025-04-14] MEDS: ipratropium/albuterol 3ml nebule NEB SCH (08:55)
[2025-04-14] MEDS ORDERED: albuterol 2.5 MG/3 ML nebule NEB PRN (08:55)
[2025-04-14] MEDS: furosemide 10 MG/1 ML 10ml inj IV SCH (09:07)
[2025-04-14] MEDS: docusate sod 100mg capsule PO SCH (09:09)
[2025-04-14] MEDS: heparin, porcine 5000 units/ml vial SQ SCH (09:10)
[2025-04-14] MEDS: acetaZOLAMIDE IV 500mg inj IV ONE (10:03)
--- NOTE | 2025-04-14 11:18 | PROGRESS NOTE- Residence ---
Progress Note - Resident Providers to CC Resident Creating Document: DEZ LANDRUM RES ~ Antibiotic Timeout Antibiotic Ordered?: Yes Subjective Patient was seen and examined at the bedside. She is complaining of weakness but denied muscle pain or focal symptoms. She is requiring oxygen but denies chest pain, shortness of breath or productive cough. Objective Vital Signs Date Time Temp Pulse Resp B/P (MAP) Pulse Ox O2 Delivery O2 Flow Rate FiO2 04/14/25 10:37 97.2 61 14 129/68 (88) 93 Room Air 04/14/25 08:00 2.0 28 Result Diagram: 04/14/25 0145 04/14/25 0604 General: Awake and Alert, no acute distress. HEENT: Conjunctiva pink, Sclera clear, Mucus Membranes moist. Neck: Supple without masses and tenderness. Resp: Unlabored. Bilateral basilar crackles, without wheezing. Heart: Regular Rate and rhythm, normal S1 and S2 Abdomen: Soft and non tender no organomegaly Extremities: Bilateral lower extremity 2+ edema Skin: Diffuse lower extremity scaly lesions. Neurological: Speech is clear, alert, and oriented x 4, patient is wheelchair- bound, lower extremity strength 4/5, chronic Coagulation Studies Laboratory Tests Test 04/14/25 01:45 Prothrombin Time 10.9 SECONDS (9.0-12.0) INR International Normalized Ratio 1.1 INR Activated Partial Thromboplast Time 28 SECONDS (22-32) Coagulation Comments Plan Plan Assessment 65-year-old male patient admitted for generalized weakness and acute hypoxemic respiratory failure. 1. Acute hypoxemic respiratory failure, present on admission 2. Respiratory acidosis with compensated metabolic alkalosis, most likely chronic 3. Community acquired pneumonia possible, treating with broad spectrum antibiotics Differential diagnosis include obesity hypoventilation and mild CHF exacerbation Patient denies shortness or breath, fever or productive cough Obesity: BMI 58.1 Chest x-ray showed: Moderate diffuse increased prominence of the pulmonary vasculature. ABG: pH 7.397, pCO2 57.9, HCO3 34.9, PO2 84.7 Initially requiring 2L/min oxygen to maintain normoxemia 02/08/25 : Echo showed: Overall LVEF is 60%. Normal LV size and function. Mild concentric hypertrophy. RV appears mildly dilated with normal contractility. Trileaflet AV appears sclerotic without stenosis. No insufficiency. Trace mitral regurgitation.Trace tricuspid regurgitation. Trace pulmonic regurgitation. There is no pericardial effusion, epicardial pad present. 04/14/2025 New Echo: Overall systolic function appears normal. LVEF is 65%. Wells score 4.5 (clinical signs of DVT and immobilization) BNP 75, heart failure unlikely WBC 12.0, D-dimer 2.0, Procalcitonin < 0.05, CPK 36 Started on cetriaxone + azithromycin + Solu-Medrol Continue Lasix 40 mg IV Started on acetazolamide 250mg IV daily Incentive spirometry Ordered bilateral lower extremity venous Doppler Ordered chest CTA Generalized weakness 04/14/2025 No focal signs Patient is wheelchair-bound, however she reported she is not able to transfer from wheelchair to chair after discharged from rehab facility Patient was not doing physical therapy for weeks has advanced Parkinson disease and not able to help the patient at home She might need new placement Needs criminal justice social worker and case investigator for DC planning Hypertension, well controlled Continue losartan Lasix p.o. converted to IV Hold hydrochlorothiazide, currently on acetazolamide Hypothyroidism TSH was 11.19 on 02/12/2025, possibly contributing to weakness Pending new TSH Continue levothyroxine 150 mcg daily PTSD anxiety depression Continue escitalopram 20 mg daily Code Status: Full DVT prophylaxis: Heparin subQ Analgesia/sedation: None Line/tube: Peripheral GI prophylaxis: None Nutrition: Heart healthy PT: Yes Prognosis: Guarded Disposition: Continue medical therapy. Pending chest CTA. I spent approximately 36 minutes of critical care with the patient. Resident attestation The above note has been reviewed and supervised by a senior resident PGY2/PGY3 Patient was seen, examined and discussed with the attending physician Date of Service: Apr 14, 2025 Billing Provider: OSKAR ANNE MD, LUCAS, RES Apr 14, 2025 11:18
[2025-04-14] MEDS: methylPREDNISolone sod succ/PF 40mg inj. IV SCH (13:24)
[2025-04-14] MEDS: azithromycin/NS 500mg/250ml 250 ML IV ONE (13:24)
[2025-04-14] MEDS: CefTRIAXone/D5W-Rocephin 1gm 50 ML IV ONE (13:24)
--- NOTE | 2025-04-14 13:52 | VASCULAR REPORT ---
Right lower extremity venous duplex Clinical History: edema Comparison: None Findings: Duplex Doppler evaluation of the deep venous system of the right lower extremity from the common femoral vein to the popliteal vein including color Doppler and spectral/pulsed waveform analysis was performed. Vein Imaging (Right) CFV (R): Compressible, Spontaneous, Respirophasic, Augmentation Reflux: ms SFJ (R): Compressible, Spontaneous, Respirophasic, Augmentation Reflux: ms FEM (R): Compressible, Spontaneous, Respirophasic, Augmentation Reflux: ms POP (R): Compressible, Spontaneous, Respirophasic, Augmentation Reflux: ms DFV (R): Compressible, Spontaneous, Respirophasic, Augmentation Reflux: ms PTV (R): Compressible, Spontaneous, Respirophasic, Augmentation Reflux: ms GSV (R): Compressible, Spontaneous, Respirophasic, Augmentation Reflux: ms Peroneals (R): Not visualized Reflux: ms Vein Imaging (Left) CFV (L): Compressible, Spontaneous, Respirophasic, Augmentation Reflux: ms SFJ (L): Compressible, Spontaneous, Respirophasic, Augmentation Reflux: ms FEM (L): Compressible, Spontaneous, Respirophasic, Augmentation Reflux: ms POP (L): Compressible, Spontaneous, Respirophasic, Augmentation Reflux: ms DFV (L): Compressible, Spontaneous, Respirophasic, Augmentation Reflux: ms PTV (L): Compressible, Spontaneous, Respirophasic, Augmentation Reflux: ms GSV (L): Compressible, Spontaneous, Respirophasic, Augmentation Reflux: ms Peroneals (L): Not visualized Reflux: ms CONCLUSION No sonographic evidence of deep venous thrombosis in bilateral lower extremities. Normal compressible veins with spontaneous respirophasic flow and good augmentation throughout both legs. Bilateral peroneal veins are not visualized due to edema.
--- NOTE | 2025-04-14 17:23 | RADIOLOGY REPORT ---
CTA Chest with intravenous contrast INDICATION: Acute hypoxemic respiratory failure, elevated D-dimer, immobilization COMPARISON: None TECHNIQUE: Multidetector spiral CTA of the chest was performed of the chest with intravenous contrast. PULMONARY ANGIOGRAPHY PROTOCOL was utilized using a bolus- tracking technique centered on the main pulmonary artery. Axial, coronal and sagittal multiplanar and MIP reformats were performed. Radiation Dose : 1. Chest: CTDI volume is 25 mGy. Dose-length product is 862 mGy*cm The dose indicators for CT are the volume Computed Tomography (CT) Dose Index (CTDIvol) and the Dose Length Product (DLP), and are measured in units of mGy and mGy-cm, respectively. These indicators are not patient dose, but values generated from the CT scanner acquisition factors. The report includes radiation exposure data for exposures received during this examination. Findings: Pulmonary artery: No pulmonary embolism Lower neck: Normal thyroid. Lungs: Multifocal pneumonia throughout both lungs. Heart/Vascular Structures: Normal heart size. No pericardial effusion. Lymph Nodes: Prominent mediastinal lymph nodes, likely reactive. Pleura: No pleural effusion or significant pneumothorax. Musculoskeletal: No acute osseous abnormality. Soft tissues: Normal. Upper abdomen: Limited portions of the upper abdomen are unremarkable. IMPRESSION: 1. No pulmonary embolism. 2. Multifocal pneumonia.
--- NOTE | 2025-04-14 19:50 | CARDIOLOGY REPORT ---
APPROVED REPORT EXAM: Limited 2D, Doppler, and color-flow Echocardiogram. 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 Velocity 256 cm/s RAP ESTIMATE 15 mmHg TR Peak Gr. 26 mmHg RVSP 41 mmHg LEFT VENTRICLE LV appears normal in size with mild concentric hypertrophy. Overall systolic function appears normal. LVEF is 65%. RIGHT VENTRICLE RV appears mildly dilated with a thickened RV free wall. RVSP is estimated at 41 mmHG. TRICUSPID VALVE The tricuspid valve is normal in structure. Trace tricuspid regurgitation. GREAT VESSELS IVC appears dilated and collapses greater than 50% with inspiration. PERICARDIUM Trivial anterior pericardial effusion with no evidence of hemodynamic compromise. Epicardial pad present. Other Information Study Quality: Adequate Conclusion LV appears normal in size with mild concentric hypertrophy. Overall systolic function appears normal. LVEF is 65%. RV appears mildly dilated with a thickened RV free wall. RVSP is estimated at 41 mmHG. The tricuspid valve is normal in structure. Trace tricuspid regurgitation. Trivial anterior pericardial effusion with no evidence of hemodynamic compromise. Epicardial pad present.
[2025-04-14] MEDS: HYDROcodone/acetaminophen 5mg/325mg tablet PO PRN (19:51)
[2025-04-15] VITALS (16 sets, daily range): BP systolic 95–129; BP diastolic 47–59; PULSE 56–74; RESP 16–18; TEMP 96.9–97.9; O2SAT 90–95
[2025-04-15 06:33] LABS: MEAN PLATELET VOLUME 10.8 FL (7.4-10.4); RED CELL DISTRIBUTION WIDTH 14.3 % (11.5-14.5)
[2025-04-15 06:55] LABS: CREATININE 0.72 MG/DL (0.40-0.90); TOTAL CARBON DIOXIDE 32.4 MMOL/L (24-32); eCRCL 57 ML/MIN; eGFR 82 ML/MIN
[2025-04-15] MEDS: CefTRIAXone/D5W-Rocephin 1gm 50 ML IV SCH (08:39)
[2025-04-15] MEDS: levoTHYROXINE 75mcg tablet PO SCH (08:40)
[2025-04-15] MEDS: mineral oil/petrolatum, white cream 113gm jar TP SCH (08:57)
[2025-04-15] MEDS: acetaZOLAMIDE IV 500mg inj IV SCH (08:57)
[2025-04-15] MEDS: ESCITALOPRAM 10 mg tablet 10 MG TABLET PO SCH (08:58)
--- NOTE | 2025-04-15 11:41 | PROGRESS NOTE- Residence ---
Progress Note - Resident Providers to CC Resident Creating Document: KARIE WASHINGTON RES ~ Antibiotic Timeout Antibiotic Ordered?: Yes Subjective Patient was seen and examined on bedside, she reports that she feels weak, previously she used to walk with the help of walker, now she cannot ambulate with walker because she feels very weak. 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 Objective Vital Signs Date Time Temp Pulse Resp B/P (MAP) Pulse Ox O2 Delivery O2 Flow Rate FiO2 04/15/25 08:40 16 04/15/25 06:00 97.9 72 95/47 (63) 90 Nasal Cannula 2.0 04/15/25 03:19 28 Result Diagram: 04/15/25 0544 04/15/25 0544 General: awake, alert oriented to place, time, and person HEENT: No pallor present, no icterus, moist mucous membranes Neck: No masses and tenderness Resp: Unlabored. Lungs clear to auscultation bilaterally. Chest: Normal expansion. Cardiovascular: Regular Rate and rhythm, normal S1 and S2 without murmur, rub or gallop Abdomen: Soft and non tender in epigastrium, no organomegaly, no guarding and rigidity, bowel sounds present Neuro: Speech is clear, alert, and oriented x 4, patient is wheelchair-bound, lower extremity strength 2/5. Extremities: Bilateral lower extemity swelling, no cyanosis Skin: Warm and Dry. No lesions Psych: Normal affect Coagulation Studies Laboratory Tests Test 04/14/25 01:45 04/14/25 11:06 Prothrombin Time 10.9 SECONDS (9.0-12.0) INR International Normalized Ratio 1.1 INR Activated Partial Thromboplast Time 28 SECONDS (22-32) Coagulation Comments D-Dimer 2.00 MG/L FEU (0-0.50) H D-Dimer Comment Plan Plan Assessment 65-year-old male patient admitted for generalized weakness and acute hypoxemic respiratory failure. Acute Hypoxemic Respiratory failure Secondary to Community Acquired Pneumonia CTA shows Multifocal Pneumonia Continue Rocephin IV 1 g Day 2 Started patient on Zithromax day 2 Procal normal Patient received one dose of Zithromax p.o. 500 mg Patient is on 1 L of oxygen and maintaining oxyg sat Incentive Spirometry D-Dimer Elevated D- Dimer elevated elevated 2.0 Weils Score 4.5 CTA shows ruled out PE Bilateral lower Extremity Swelling Possibly Due to Immobilization Vascular ultrasound ruled out DVT Recommendation:Use pillows to raise your legs for about 15 minutes, 3-4 times daily Patient possibly need chronic DVT prophylaxis as she is bed-bound consider DVT prophylaxis on discharge. COPD not in acute exacerbation DuoNebs Q4h p.r.n. Incentive spirometry Chest X-Ray :Moderate diffuse increased prominence of the pulmonary vasculature. Generalized weakness Patient is wheelchair-bound, previously she used to ambulate with walker now she cannot ambulate with walker, in view of her weakness ordered MRI Follow up MRI Brain PT eval Hypertension, well controlled Held Losartan in view of soft pressures Lasix p.o. converted to IV Hold hydrochlorothiazide, currently on acetazolamide Hypothyroidism TSH Normal Continue levothyroxine 150 mcg daily Migraine Continue Imitrex PTSD anxiety depression Continue escitalopram 20 mg daily Code Status: Full Code DVT prophylaxis: Heparin subQ Line/tube: Peripheral GI prophylaxis: None Nutrition: Heart healthy PT: Yes Prognosis: Guarded Disposition: Patient likely need Rehab, PT and MRI awaiting. Date of Service: Apr 15, 2025 Billing Provider: OSKAR ANNE MD, SANJAY, RES Apr 15, 2025 11:41
[2025-04-15] MEDS ORDERED: ipratropium/albuterol 3ml nebule NEB PRN (13:40)
[2025-04-15] MEDS ORDERED: magnesium hydroxide 30ml (MOM) UD suspension PO PRN (17:35)
[2025-04-16] VITALS (13 sets, daily range): BP systolic 121–162; BP diastolic 66–91; PULSE 56–78; RESP 16–20; TEMP 97.3–98.4; O2SAT 89–95
[2025-04-16 07:32] LABS: CREATININE 0.59 MG/DL (0.40-0.90); TOTAL CARBON DIOXIDE 28.2 MMOL/L (24-32); eCRCL 69 ML/MIN; eGFR > 90 ML/MIN
[2025-04-16 07:51] LABS: MEAN PLATELET VOLUME 10.6 FL (7.4-10.4); RED CELL DISTRIBUTION WIDTH 14.2 % (11.5-14.5)
[2025-04-16 10:04] LABS: LARGE PLATELETS FEW; PLATELET ESTIMATE NORMAL
[2025-04-16] MEDS: furosemide 10 MG/1 ML 10ml inj IV SCH (11:40)
[2025-04-16] MEDS: methylPREDNISolone sod succ/PF 40mg inj. IV SCH (11:40)
[2025-04-16] MEDS: azithromycin/NS 500mg/250ml 250 ML IV SCH (12:54)
[2025-04-16] MEDS: diazepam inj 5 MG/ML inj. IV ONE ×2 (13:10→13:15)
--- NOTE | 2025-04-16 15:21 | RADIOLOGY REPORT ---
PROCEDURE: MRI OF THE BRAIN WITHOUT CONTRAST. CLINICAL INDICATION: Weakness, headache TECHNIQUE: Multiplanar, multi sequence MRI of the brain was performed without intravenous contrast. COMPARISON: None FINDINGS: The signal characteristics of the brain parenchyma is within normal limits. There are no areas of restricted diffusion to suggest acute infarct. No evidence of space occupying mass lesion, extra-axial collections or hemorrhage is noted. The ventricles, sulci and basal cisterns are intact. There is no signal abnormality in the posterior fossa. The paranasal sinuses and mastoid air cells are well pneumatized. The orbits and nasopharynx are intact. The osseous structures are intact. The vessels of the skull base demonstrate signal void consistent with patency. IMPRESSION: 1. No acute intracranial abnormality.
[2025-04-16 16:28] LABS: LEUKOCYTE ESTERASE ,URINE NEGATIVE (Neg); NITRITES, URINE NEGATIVE (Neg); OCCULT BLOOD,URINE NEGATIVE (Neg)
[2025-04-16 16:44] LABS: UA COLLECTION TYPE CLN CATCH MIDSTREAM
--- NOTE | 2025-04-16 18:37 | PROGRESS NOTE- Residence ---
Progress Note - Resident Providers to CC Resident Creating Document: JOMAR GREEN RES ~ Antibiotic Timeout Antibiotic Ordered?: Yes Subjective Patient was seen and examined at the bedside. MRI did not show any acute intracranial abnormality. Patient has been weaned off her oxygen. Physical therapy recommended post acute care. Anticipated discharge tomorrow. Objective Vital Signs Date Time Temp Pulse Resp B/P (MAP) Pulse Ox O2 Delivery O2 Flow Rate FiO2 04/16/25 16:19 59 16 Room Air 0.0 04/16/25 16:11 93 21 04/16/25 06:00 97.8 137/73 (94) Result Diagram: 04/16/25 0739 04/16/25 0607 General: awake, alert oriented to place, time, and person HEENT: No pallor present, no icterus, moist mucous membranes Neck: No masses and tenderness Resp: Unlabored. Decreased breath sounds bilaterally Chest: Normal expansion. Cardiovascular: Regular Rate and rhythm, normal S1 and S2 without murmur, rub or gallop Abdomen: Soft and non tender in epigastrium, no organomegaly, no guarding and rigidity, bowel sounds present Neuro: Speech is clear, alert, and oriented x 4, patient is wheelchair-bound, lower extremity strength 2/5. Extremities: Bilateral lower extemity swelling, no cyanosis Skin: Warm and Dry. No lesions Psych: Normal affect Coagulation Studies Laboratory Tests Test 04/14/25 01:45 04/14/25 11:06 Prothrombin Time 10.9 SECONDS (9.0-12.0) INR International Normalized Ratio 1.1 INR Activated Partial Thromboplast Time 28 SECONDS (22-32) Coagulation Comments D-Dimer 2.00 MG/L FEU (0-0.50) H D-Dimer Comment Plan Plan Assessment 65-year-old male patient admitted for generalized weakness and acute hypoxemic respiratory failure. Acute Hypoxemic Respiratory failure Secondary to Community Acquired Pneumonia CTA shows Multifocal Pneumonia Continue Rocephin IV 1 g Day 2 Started patient on Zithromax day 2 Procal normal Patient received one dose of Zithromax p.o. 500 mg Incentive Spirometry D-Dimer Elevated D- Dimer elevated elevated 2.0 Weils Score 4.5 CTA shows ruled out PE Bilateral lower Extremity Swelling Possibly Due to Immobilization Vascular ultrasound ruled out DVT Recommendation:Use pillows to raise your legs for about 15 minutes, 3-4 times daily Patient possibly need chronic DVT prophylaxis as she is bed-bound consider DVT prophylaxis on discharge. COPD not in acute exacerbation DuoNebs Q4h p.r.n. Incentive spirometry Chest X-Ray :Moderate diffuse increased prominence of the pulmonary vasculature. Generalized weakness Patient is wheelchair-bound, previously she used to ambulate with walker now she cannot ambulate with walker, in view of her weakness ordered MRI MRI showed no acute intracranial abnormality PT eval determined home with barriers Hypertension, well controlled Held Losartan in view of soft pressures Lasix p.o. converted to IV Hold hydrochlorothiazide, currently on acetazolamide Hypothyroidism TSH Normal Continue levothyroxine 150 mcg daily Migraine Continue Imitrex PTSD anxiety depression Continue escitalopram 20 mg daily Code Status: Full Code DVT prophylaxis: Heparin subQ Line/tube: Peripheral GI prophylaxis: None Nutrition: Heart healthy PT: Yes Prognosis: Guarded Disposition: Physical therapy recommended post acute care. Anticipated discharge tomorrow. Jomar Manuel MD PGY two internal medicine resident Date of Service: Apr 16, 2025 Billing Provider: OSAKR ANNE MD, DEEPIKA BANDI, RES Apr 16, 2025 18:37
[2025-04-17] VITALS (12 sets, daily range): BP systolic 121–127; BP diastolic 58–79; PULSE 58–80; RESP 13–20; TEMP 97.5–98.5; O2SAT 92–98
[2025-04-17 06:22] LABS: MEAN PLATELET VOLUME 10.3 FL (7.4-10.4); RED CELL DISTRIBUTION WIDTH 14.1 % (11.5-14.5)
[2025-04-17 06:34] LABS: CREATININE 0.81 MG/DL (0.40-0.90); TOTAL CARBON DIOXIDE 31.1 MMOL/L (24-32); eCRCL 50 ML/MIN; eGFR 71 ML/MIN
[2025-04-17] MEDS ORDERED: CEFD300C3 PO (07:31)
[2025-04-17] MEDS ORDERED: LACT1CAP26 PO (07:31)
[2025-04-17] MEDS ORDERED: PRED10TA23 PO (07:31)
--- NOTE | 2025-04-17 18:20 | PROGRESS NOTE- Residence ---
Progress Note - Resident Providers to CC Resident Creating Document: JOMAR GREEN, FAWN ~ Antibiotic Timeout Antibiotic Ordered?: Yes Subjective Patient was seen and examined at the bedside. Patient has been qualified for home oxygen. Patient is supposed to go to [facility] today. However did not get authorization, likely discharge tomorrow. Patient is medically cleared for discharge. Objective Vital Signs Date Time Temp Pulse Resp B/P (MAP) Pulse Ox O2 Delivery O2 Flow Rate FiO2 04/17/25 15:57 67 16 Nasal Cannula 1.0 04/17/25 15:50 96 24 04/17/25 10:00 97.7 125/67 (86) Result Diagram: 04/17/2555704/17/2558 General: awake, alert oriented to place, time, and person HEENT: No pallor present, no icterus, moist mucous membranes Neck: No masses and tenderness Resp: Unlabored. Decreased breath sounds bilaterally Chest: Normal expansion. Cardiovascular: Regular Rate and rhythm, normal S1 and S2 without murmur, rub or gallop Abdomen: Soft and non tender in epigastrium, no organomegaly, no guarding and rigidity, bowel sounds present Neuro: Speech is clear, alert, and oriented x 4, patient is wheelchair-bound, lower extremity strength 2/5. Extremities: Bilateral lower extemity swelling, no cyanosis Skin: Warm and Dry. No lesions Psych: Normal affect Coagulation Studies Laboratory Tests Test 04/14/25 01:45 04/14/25 11:06 Prothrombin Time 10.9 SECONDS (9.0-12.0) INR International Normalized Ratio 1.1 INR Activated Partial Thromboplast Time 28 SECONDS (22-32) Coagulation Comments D-Dimer 2.00 MG/L FEU (0-0.50) H D-Dimer Comment Assessment Assessment 65-year-old male patient admitted for generalized weakness and acute hypoxemic respiratory failure. Plan Plan Acute Hypoxemic Respiratory failure Secondary to Community Acquired Pneumonia, covering Gram-positive, negatives and atypicals CTA shows Multifocal Pneumonia Continue Rocephin IV 1 g Started patient on Zithromax Procal normal Patient received one dose of Zithromax p.o. 500 mg Incentive Spirometry Pulmonary embolism, ruled out D- Dimer elevated elevated 2.0 Weils Score 4.5 CTA shows ruled out PE Chronic edema in legs Vascular ultrasound ruled out DVT Recommendation:Use pillows to raise your legs for about 15 minutes, 3-4 times daily Patient possibly need chronic DVT prophylaxis as she is bed-bound consider DVT prophylaxis on discharge. Acute on chronic COPD exacerbation DuoNebs Q4h p.r.n. Incentive spirometry Chest X-Ray :Moderate diffuse increased prominence of the pulmonary vasculature. Generalized weakness Patient is wheelchair-bound, previously she used to ambulate with walker now she cannot ambulate with walker, in view of her weakness ordered MRI MRI showed no acute intracranial abnormality PT eval determined home with barriers Hypertension, well controlled Held Losartan in view of soft pressures Lasix p.o. converted to IV Hold hydrochlorothiazide, currently on acetazolamide Hypothyroidism TSH Normal Continue levothyroxine 150 mcg daily Migraine Continue Imitrex PTSD anxiety depression Continue escitalopram 20 mg daily Code Status: Full Code DVT prophylaxis: Heparin subQ Line/tube: Peripheral GI prophylaxis: None Nutrition: Heart healthy PT: Yes Prognosis: Guarded Disposition: Physical therapy recommended post acute care. Anticipated discharge tomorrow after authorization from insurance to [facility]. Jomar Morrison MD PGY two internal medicine resident Date of Service: Apr 17, 2025 Billing Provider: OSKAR ANNE MD,JOMAR MORRISON, RES Apr 17, 2025 18:20
[2025-04-18] VITALS (7 sets, daily range): BP systolic 138–149; BP diastolic 70–75; PULSE 61–84; RESP 16; TEMP 97–97.2; O2SAT 92–97
[2025-04-18 06:13] LABS: MEAN PLATELET VOLUME 10.5 FL (7.4-10.4); RED CELL DISTRIBUTION WIDTH 14.2 % (11.5-14.5)
[2025-04-18 06:27] LABS: CREATININE 0.72 MG/DL (0.40-0.90); TOTAL CARBON DIOXIDE 30.4 MMOL/L (24-32); eCRCL 57 ML/MIN; eGFR 82 ML/MIN
[2025-04-18 09:10] LABS: BANDS% (MANUAL) 2.0 % (0-10); LYMPHOCYTES % (MANUAL) 7.0 % (21-51); METAMYLEOCYTES% (MANUAL) 2.0 % (0-0); MONOCYTES % (MANUAL) 4.0 % (2-12); NEUTROPHILS % (MANUAL) 85.0 % (42-75)
[2025-04-18 09:11] LABS: PLATELET ESTIMATE NORMAL
--- NOTE | 2025-04-18 16:26 | DISCHARGE SUMMARY-Residence ---
Discharge Summary Providers to CC Resident Creating Document: CHRISTA CAN RES CC: OSKAR ANNE MD ~ Discharge Summary Admission Diagnosis: GENERALIZED WEAKNESS, CHF EXACERBATION Hospital Course DATE OF ADMISSION: 04/14/2025 DATE OF DISCHARGE: 04/18/2025 Discharge Diagnosis\Comment: Acute Hypoxemic Respiratory failure Secondary to Community Acquired Pneumonia, covering Gram-positive, negatives and atypical organisms Pulmonary embolism, ruled out Chronic edema in legs Acute on chronic COPD exacerbation Generalized weakness Hypertension Hypothyroidism Migraine PTSD Anxiety Depression Operations\Procedures: None Consultants: None Complications: None Condition on DC: Stable for transfer New Medications: Cefdinir* (Cefdinir*) 300 Mg Capsule 1 CAP PO Q12H for 7 Days, #14 CAP Lactobacillus Rhamnosus (Culturelle) 10 Billion Cell Capsule 1 CAP PO BID for 30 Days, #60 CAP 0 Refills Prednisone (Prednisone) 10 Mg Tablet 0 PO DAILY, #42 TAB Take 4 tabs daily x4 days, then 3 daily x4 days 2 daily x4 days 1 daily x4 days 1/2 daily x4 days then STOP Continued Medications: Escitalopram Oxalate (Escitalopram Oxalate) 20 Mg Tablet 1 TAB PO DAILY Furosemide (Furosemide) 40 Mg Tablet 1 TAB PO DAILY Hydrochlorothiazide (Hydrochlorothiazide) 50 Mg Tablet 1 TAB PO DAILY, TAB 0 Refills Hydrocodone Bit/Acetaminophen (Hydrocodon-Acetaminophn 10-325 tablet) 10mg- 325mg Tablet Levothyroxine Sodium (Levothyroxine Sodium) 150 Mcg Tablet 1 TAB PO DAILY Losartan Potassium (Losartan Potassium) 50 Mg Tablet 1 TAB PO DAILY Sumatriptan Succinate (Sumatriptan Succinate) 100 Mg Tablet 1 TAB PO PRN PRN for headache, TAB 0 Refills may repeat in 2 hours; do not exceed 200 mg in 24 hours Discontinued Medications: Escitalopram Oxalate (Lexapro) 20 Mg Tablet 1 TAB PO DAILY for 30 Days, #30 TAB 0 Refills Levothyroxine Sodium* (Synthroid*) 75 Mcg Tablet 2 TAB PO DAILY, TAB Losartan Potassium* (Cozaar*) 25 Mg Tablet 2 TAB PO DAILY, TAB Discharge Summary: HPI as per admitting physician: 65 years old female with history of hypothyroidism, obesity BMI 58.1, heart failure with preserved ejection fraction PTSD wheelchair-bound presented to the ED due to generalized weakness. Patient discharged home from [facility] acute care yesterday. Patient was in rehab for six week, as patient's report she received physical therapy 4 weeks and feeling much better however due to insurance issue she could not continue physical therapy. Patient discharged home yesterday however she reported she experienced generalized weakness and unable to transfer from wheelchair to couch/chair. She reported 2/3 times almost fell on the ground. She did not hit her head or lose consciousness. Patient also reported while she was on 2 L oxygen or rehab however she discharged home with no any oxygen. When she arrived in the ED she was hypoxic with O2 saturation of 85% however after she received 2 L of oxygen oxygen saturation went up to 93%. Patient denies any shortness of breaths, chest pain nausea vomiting abdominal pain. She was advised to follow-up for sleep study for evaluation of obstructive sleep apnea but it is still pending. Hospital course: A 65 years old female with history of hypothyroidism, obesity BMI 58.1, heart failure with preserved ejection fraction PTSD wheelchair-bound presented to the ED due to generalized weakness. Patient was discharged home from [facility] acute care before this admission and she was in rehab as she needed physical therapy. Patient developed weakness and was unable to transfer from wheelchair to chair and she was brought to the ED due to generalized weakness. Patient was diagnosed with acute hypoxemic respiratory failure secondary to community- acquired pneumonia, CTA showed multifocal pneumonia, treated the patient with Rocephin and Zithromax. Patient's D-dimer was elevated at two,Weils score was 4.5 CTA was done which ruled out pulmonary embolism. Patient has chronic edema in her legs and vascular ultrasound ruled out DVT. Patient noted acute on chronic COPD exacerbation, she was treated appropriately with DuoNebs and was recommended incentive spirometry. Patient is wheelchair-bound and used to ambulate with walker but during this admission she could not ambulate with walker due to severe weakness, MRI was done which ruled acute intracranial abnormality. We continued patient's home medication levothyroxine 150 mcg for hypothyroidism. We continued patient's home medication Imitrex for her migraine, and escitalopram 20 mg for her PTSD and depression. Patient did not have home oxygen prior, and this admission she qualified for home oxygen Significant imaging Chest x-ray 04/14/2025 Moderate diffuse increased prominence of the pulmonary vasculature. Echocardiogram 04/14/2025 LV appears normal in size with mild concentric hypertrophy. Overall systolic function appears normal. LVEF is 65%. RV appears mildly dilated with a thickened RV free wall. RVSP is estimated at 41 mmHG. The tricuspid valve is normal in structure. Trace tricuspid regurgitation. Trivial anterior pericardial effusion with no evidence of hemodynamic compromise. Epicardial pad present. Vascular ultrasound 04/14/2025 No sonographic evidence of deep venous thrombosis in bilateral lower extremities. Normal compressible veins with spontaneous respirophasic flow and good augmentation throughout both legs. Bilateral peroneal veins are not visualized due to edema. Chest CTA 04/14/2025 1. No pulmonary embolism. 2. Multifocal pneumonia. Head MRI 04/16/2025 1. No acute intracranial abnormality. Physical examination the time of discharge General: awake, alert oriented to place, time, and person HEENT: No pallor present, no icterus, moist mucous membranes Neck: No masses and tenderness Resp: Unlabored. Decreased breath sounds bilaterally Chest: Normal expansion. Cardiovascular: Regular Rate and rhythm, normal S1 and S2 without murmur, rub or gallop Abdomen: Soft and non tender in epigastrium, no organomegaly, no guarding and rigidity, bowel sounds present Neuro: Speech is clear, alert, and oriented x 4, patient is wheelchair-bound, lower extremity strength 2/5. Extremities: Bilateral lower extemity swelling, onychomycosis no cyanosis Skin: Warm and Dry. No lesions Psych: Normal affect Vital Signs Date Time Temp Pulse Resp B/P (MAP) Pulse Ox O2 Delivery O2 Flow Rate FiO2 04/18/25 10:53 70 16 Nasal Cannula 1.0 04/18/25 10:48 96 24 04/18/25 10:00 97.2 149/70 (96) Laboratory Tests Test 04/17/25 05:58 04/18/25 05:18 White Blood Count 10.0 X10'3 11.4 X10'3 Red Blood Count 4.42 X10'6 4.47 X10'6 Hemoglobin 13.6 g/dl 13.5 g/dl Hematocrit 41.3 % 41.6 % Mean Corpuscular Volume 93.4 FL 93.1 FL Mean Corpuscular Hemoglobin 30.8 PG 30.2 PG Mean Corpuscular Hemoglobin Concent 33.0 g/dL 32.5 g/dL Red Cell Distribution Width 14.1 % 14.2 % Platelet Count 262 X10'3 252 X10'3 Mean Platelet Volume 10.3 FL 10.5 FL Neutrophils (%) (Auto) 89.1 % 87.2 % Lymphocytes (%) (Auto) 7.4 % 8.7 % Monocytes (%) (Auto) 3.3 % 4.0 % Eosinophils (%) (Auto) 0.1 % 0 % Basophils (%) (Auto) 0.1 % 0.1 % Neutrophils # (Auto) 8.9 X10'3 9.9 X10'3 Lymphocytes # (Auto) 0.7 X10'3 1.0 X10'3 Monocytes # (Auto) 0.3 X10'3 0.5 X10'3 Eosinophils # (Auto) 0.0 X10'3 0.0 X10'3 Basophils # (Auto) 0.0 X10'3 0.0 X10'3 CBC Comment Sodium Level 142 MMOL/L 141 MMOL/L Potassium Level 3.5 MMOL/L 4.0 MMOL/L Chloride Level 103 MMOL/L 103 MMOL/L Carbon Dioxide Level 31.1 MMOL/L 30.4 MMOL/L Anion Gap 8 8 Blood Urea Nitrogen 19 MG/DL 19 MG/DL Creatinine 0.81 MG/DL 0.72 MG/DL Estimated GFR/1.73 m2 71 ML/MIN 82 ML/MIN BUN/Creatinine Ratio 23.5 26.4 Glucose Level 144 MG/DL 131 MG/DL Calcium Level 9.1 MG/DL 9.1 MG/DL Total Bilirubin 0.3 MG/DL 0.4 MG/DL Aspartate Amino Transf (AST/SGOT) 116 U/L 61 U/L Alanine Aminotransferase (ALT/SGPT) 145 U/L 141 U/L Alkaline Phosphatase 82 IU/L 78 IU/L Total Protein 7.7 G/DL 7.5 G/DL Albumin 2.9 G/DL 2.9 G/DL Globulin 4.8 G/DL 4.6 G/DL Albumin/Globulin Ratio 0.6 0.6 Chemistry Comments Differential Total Cells Counted 100 Neutrophils % (Manual) 85.0 % Band Neutrophils % 2.0 % Lymphocytes % (Manual) 7.0 % Monocytes % (Manual) 4.0 % Metamyelocytes % 2.0 % Platelet Estimate Normal Red Blood Cell Morphology Normal Basophilic Stippling Discharge instruction Follow up with the PCP, neurologist in a week. We have prescribed seven days of antibiotics and tapering dose of steroids. Take them as prescribed. Return to the ED if you have worsening weakness shortness of breath. Discharge medications New Medications: Cefdinir* 300 Mg Capsule Lactobacillus Rhamnosus (Culturelle) 10 Billion Cell Capsule Prednisone 10 Mg Tablet Take 4 tabs daily x4 days, then 3 daily x4 days 2 daily x4 days 1 daily x4 days 1/2 daily x4 days then STOP Continued Medications: Escitalopram Oxalate 20 Mg Tablet Furosemide 40 Mg Tablet Hydrochlorothiazide 50 Mg Tablet Hydrocodone Bit/Acetaminophen (Hydrocodon-Acetaminophn 10-325 tablet) 10mg- 325mg Tablet Levothyroxine Sodium 150 Mcg Tablet Losartan Potassium 50 Mg Tablet Sumatriptan Succinate 100 Mg Tablet may repeat in 2 hours; do not exceed 200 mg in 24 hours Discontinued Medications: Escitalopram Oxalate (Lexapro) 20 Mg Tablet Levothyroxine Sodium* (Synthroid*) 75 Mcg Tablet Losartan Potassium* (Cozaar*) 25 Mg Tablet *Problems/Diagnosis: (1) SOB (shortness of breath) Status: Acute (2) Weakness Status: Acute Total Time Spent on D/C: Up to 30 Minutes Date of Service: Apr 18, 2025 Billing Provider: OSKAR ANNE MD, JAHNAVI, RES Apr 18, 2025 16:00
== END 2025-04-18 13:40 | DRG 133 ==
LOC: ER 01:26 → ED HOLD 03:41 → ORTHO 4S 05:35
PROVIDERS: ADMIT Internal Medicine; ATTEND Family Medicine
PROC: B32T1ZZ Computerized Tomography (CT Scan) of Left Pulmonary Artery using Low Osmolar Contrast (ICD-10-PCS; principal; 2025-04-14)
PROC: B3201ZZ Computerized Tomography (CT Scan) of Thoracic Aorta using Low Osmolar Contrast (ICD-10-PCS; 2025-04-14)
PROC: B32S1ZZ Computerized Tomography (CT Scan) of Right Pulmonary Artery using Low Osmolar Contrast (ICD-10-PCS; 2025-04-14)
DX: J96.01 Acute respiratory failure with hypoxia (principal); J18.9 Pneumonia, unspecified organism; I50.32 Chronic diastolic (congestive) heart failure; I50.9 Heart failure, unspecified; I11.0 Hypertensive heart disease with heart failure; G43.909 Migraine, unspecified, not intractable, without status migrainosus; F43.10 Post-traumatic stress disorder, unspecified; F41.9 Anxiety disorder, unspecified; F32.A Depression, unspecified; E66.9 Obesity, unspecified; J44.0 Chronic obstructive pulmonary disease with (acute) lower respiratory infection; Z88.0 Allergy status to penicillin; J44.1 Chronic obstructive pulmonary disease with (acute) exacerbation; Z79.899 Other long term (current) drug therapy; Z68.43 Body mass index [BMI] 50.0-59.9, adult
CPT/HCPCS: 36415; 36600; 70551; 71045; 71275; 80053; 81003; 82550; 82803; 83735; 83880; 84100; 84132; 84145; 84443; 84484; 85007; 85008; 85018; 85025; 85379; 85610; 85730; 87081; 93005; 93306; 93970; 94640; 94760; 97110; 97161; 97530; 99285; A6154; G0378; J0456; J0696; J1120; J1644; J1938; J2919; J3360; J7040; Q9967